=== PATIENT | female | born 1975 | race Caucasian/White ===

== ENCOUNTER 2020-05-30 15:41 | Outpatient (CLI) | payer OTHER, SELFPAY ==
--- NOTE | ~2020-05-30 | US_ITS ---
US breast LT complete 05/30/2020 16:36 Indication: Palpable left breast lumps Procedure: High-resolution Limited left breast ultrasound Comparison: No prior studies for comparison. Findings: Patient is status post left mastectomy in 2015. Palpable lumps superior to the left breast and left axilla are unremarkable without focal mass. Third palpable lump in the mid breast at the pre vious location of the nipple contains an oval hypoechoic mass measuring 1.5 x 1.4 x 0.7 cm with poste rior acoustic enhancement. No internal vascularity. Impression: 1: Oval hypoechoic 1.5 cm left breast mass mid breast level. There is parallel orientation, posterior acoustic enhancement without internal vascularity. This is likely benign postsurgical change. Short- term follow-up in 6 months recommended to assess stability. BI-RADS CATEGORY 3-PROBABLY BENIGN FINDING RECOMMENDATION: Six-month follow-up Limited left breast ultrasound recommended. Reviewed, dictated and finalized at location A. Impression: 1: Oval hypoechoic 1.5 cm left breast mass mid breast level. There is parallel orientation, posterior acoustic enhancement without internal vascularity. This is likely benign postsurgical change. Short-term follow-up in 6 months recommen ded to assess stability. BI-RADS CATEGORY 3-PROBABLY BENIGN FINDING RECOMMENDATION: Six-month follow-up Limited left breast ultrasound recommended.
== END 2020-05-30 15:42 | disposition home or self-care (01) ==
PROVIDERS: PCP Physician Assistant; Visit Provider Physician Assistant
DX: N63.20 Unspecified lump in the left breast, unspecified quadrant (principal); R92.8 Other abnormal and inconclusive findings on diagnostic imaging of breast
CPT/HCPCS: 76641

== ENCOUNTER → 2020-08-07 14:26 | Outpatient (CLI) | payer OTHER, SELFPAY ==
--- NOTE | ~2020-08-07 | XR_ITS ---
EXAMINATION: XR chest 2V DATE: 08/07/2020 14:46 INDICATION: Shortness of breath. TECHNIQUE: Frontal and lateral views of the chest were obtained. COMPARISON: Chest 2 views 10/05/2014, chest CT 03/27/2019 FINDINGS: The chest demonstrates clear lungs without pneumonia, pleural effusion, or pneumothorax. Th e heart size is normal. There is an old healed fracture of right seventh rib. IMPRESSION: 1. No acute cardiopulmonary disease. Reviewed, dictated and finalized at location A. E BRINE TESTER
== END ==
PROVIDERS: Visit Provider Nurse Practitioner
DX: R06.02 Shortness of breath (principal)
CPT/HCPCS: 71046

== ENCOUNTER 2020-08-14 10:36 | Emergency (ER) | payer OTHER, SELFPAY ==
[2020-08-14] VITALS (14 sets, daily range): BP systolic 147–192; BP diastolic 88–107; PULSE 66–85; RESP 13–20; O2SAT 97–100
--- NOTE | ~2020-08-14 | XR_ITS ---
EXAMINATION: XR chest 1V portable EXAM DATE: 08/14/2020 11:54 INDICATION: Shortness of breath. TECHNIQUE: Portable AP frontal chest x-ray was obtained. Comparison is made to prior examination from 08/07/2020. FINDINGS: The lungs are clear. There are no pleural effusions. The cardiomediastinal silhouette is within normal limits. There is no pneumothorax suspected. The bones and soft tissues are unremarkab le. Mild hyperinflation. IMPRESSION: No acute cardiopulmonary findings. Reviewed, dictated and finalized at location B. LIFT OPERATOR
--- NOTE | 2020-08-14 10:57 | ECG_ITS ---
Measurements Intervals [place] Rate: 77 P: 77 CO: 153 QRS: 69 QRSD: 85 T: 73 QT: 363 QTc: 412 Interpretive Statements SINUS RHYTHM POSSIBLE LEFT ATRIAL ENLARGEMENT BASELINE ARTIFACT- I, II, III, AVR, AVL, AVF, V1-V2 BORDERLINE ECG Electronically Signed On 08-14-2020 11:16:28 WET PROCESS OPERATOR by Jorge Tapia D.O.
[2020-08-14 11:07] LABS: Alveolar/Arterial O2 Gradient 25.9 mmHg; Base Excess ABG -1.4 mEq/l (+/-2.0); Device ROOM AIR; Fractional Inspired Oxygen 21 %; HCO3 ABG 23.1 mEq/l (22.0-26.0); Modified Allen's Test Pass; Oxygen Content ABG 18.3 %vol (16.0-22.0); Oxygen Saturation ABG 95.6 % (95.0-100.0); Oxyhemoglobin 90.3 % THb (90.0-100.0); PCO2 ABG 38.1 mmHg (35.0-45.0); PO2 ABG 78.2 mmHg (80.0-100.0); PO2 FiO2 Ratio Arterial Blood 3.72 %; Site Drawn RIGHT RADIAL; Total Hemoglobin 14.4 g/dL (12.0-18.0)
[2020-08-14 11:12] LABS: Basophils Percent Auto 0.3 % (0.2-1.2); Eosinophils Absolute Auto 0.1 K/mm3 (0-0.3); Eosinophils Percent Auto 1.2 % (0-4.4); Hematocrit 45.3 % (37.0-47.0); Hemoglobin 14.7 g/dL (12.0-15.0); Immature Granulocyte Absolute 0.02 K/mm3 (0.00-0.031); Immature Granulocyte Percent A 0.2 % (0-0.5); Lymphocytes Absolute Auto 2.06 K/mm3 (0.9-3.2); Lymphocytes Percent Auto 21.6 % (18.3-44.2); Mean Corpuscular HGB Conc 32.5 g/dl (32-36); Mean Corpuscular Hemoglobin 30.1 pg (26-34); Mean Corpuscular Volume 92.8 fl (80-100); Mean Platelet Volume 10.6 fl (7.4-10.4); Monocytes Absolute Auto 0.6 K/mm3 (0.1-0.6); Monocytes Percent Auto 6.3 % (2.6-8.5); Neutrophils Absolute Auto 6.7 K/mm3 (1.3-6.7); Neutrophils Percent Auto 70.4 % (45.5-73.1); Platelet Count Result 338 k/mm3 (150-375); Red Blood Count 4.88 M/mm3 (4.2-5.4); Red Cell Distribution Width 14.3 % (11.5-14.5); White Blood Count 9.5 K/mm3 (4.5-10.0)
[2020-08-14 11:23] LABS: Alanine Aminotransferase 19 U/L (4-35); Albumin Level 4.3 g/dL (3.5-5.1); Alkaline Phosphatase 101 U/L (38-126); Anion Gap 9 mmol/L (8-16); Aspartate Amino Transferase 33 U/L (14-36); Bilirubin,Total 0.4 mg/dL (0.2-1.3); Blood Urea Nitrogen 18 mg/dL (7-17); Calcium 9.2 mg/dL (8.4-10.2); Carbon Dioxide 31 mmol/L (22-30); Chloride 100 mmol/L (98-107); Estimated CRCL calculation 80 ml/min; Estimated Glomerular Filt Rate > 60; Glucose 103 mg/dL (65-105); Potassium 3.9 mmol/L (3.4-5.0); Sodium 140 mmol/L (137-145)
[2020-08-14 11:35] LABS: Troponin I < 0.012 ng/mL (0.000-0.034)
--- NOTE | 2020-08-14 11:35 | ED.SOB ---
HPI - SOB/Dyspnea General Chief Complaint: Shortness of Breath/Dyspnea Stated Complaint: sob, recent covid + Time Seen by Provider: 08/14/20 10:41 Source: patient Mode of arrival: ambulatory Limitations: no limitations History of Present Illness HPI Narrative: 44 years old white female presents with intermittent shortness of breath and chest pain 1 week after her diagnosis of COVID-19 infectION 4 weeks ago. Patient denying any fever or chills. History of COPD, currently actively smoking, drinking alcohol, denies drug. History of bilateral mastectomy 2016, denied any chemo or radiation therapy. Patient is telling me that she had a spot on her lung when she was diagnosed of breast cancer and she should follow with repeated CAT scan of the chest but she did not do it. Related Data Home Medications Medication Instructions Recorded Confirmed albuterol mcg INHALATION 08/14/20 budesonide-formoterol [Symbicort] INHALATION 08/14/20 dextroamphetamine-amphetamine PO 08/14/20 [Adderall XR] Allergies Allergy/AdvReac Type Severity Reaction Status Date / Time latex Allergy Unknown Swelling Verified 08/14/20 10:51 naproxen Allergy Unknown Unknown Verified 08/14/20 10:51 lisinopril AdvReac Unknown Cough Verified 08/14/20 10:51 Review of Systems Review of Systems: Narrative: CONSTITUTIONAL: Denies fever, chills, or sweats. EYES: Denies visual changes, redness, or discharge. ENT: Denies rhinorrhea, congestion, sore throat, or otalgia. CARDIOVASCULAR: Denies chest pain, palpitations, or edema. RESPIRATORY: Denies cough or dyspnea. GASTROINTESTINAL: Denies abdominal pain, nausea, vomiting, or diarrhea. GENITOURINARY: Denies dysuria or hematuria. SKIN: Denies rash or itching. MUSCULOSKELETAL: Denies back pain, joint pain, or myalgia. NEUROLOGIC: Denies headache, numbness, or weakness. PSYCHIATRIC: Denies anxiety or depression. [facility] Family History Family History Father Hypertension Mother Asthma Family history of elevated blood lipids Sibling Family history of elevated blood lipids Carcinoma of colon Social History Social History Smoking status: Never smoker Alcohol intake: current Gender identity (if verbalized by the patient): Female Exam Narrative: Exam Narrative: General appearance: Well-developed, well-nourished Skin: Normal color Head: Normocephalic, nontraumatic Eyes: Clear conjunctiva ENT: Oropharynx normal, ears normal, nose normal Neck: Supple, nontender Chest and respiratory: Airway patent, no respiratory distress, no accessory muscle use, few scattered rhonchi, bilateral mastectomy Heart: Regular rate/rhythm Abdomen: Soft, nontender, no organomegaly, quiet bowel sounds Vascular: Normal peripheral pulses, normal capillary refill. Musculoskeletal: Normal range of motion, nontender back Neurologic: Alert and oriented ?3, GLASS VIAL FILLER is normal as tested, no gross motor deficit Course Course Emergency Course: Stable Vital Signs Vital signs: Vital Signs Pulse Rate 76 08/14/20 10:40 Respiratory Rate 16 08/14/20 10:40 Blood Pressure 192/107 H 08/14/20 10:40 Pulse Oximetry 100 08/14/20 10:40 Pulse Rate 76 08/14/20 10:46 Respiratory Rate 16 08/14/20 10:40 Blood Pressure 192/107 H 08/14/20 10:40 Pulse Oximetry 100 08/14/20 10:46 MDM - SOB/Dyspnea MDM Narrative Medical decision making narrative: Shortness of breath and chest pain status post Covid infection. Labs, chest x-ray, D-dimer, ABG on room air ordered. Further plan to follow Differential Diagnosis Differential diagnosis: Likely acute exace
== END 2020-08-14 13:02 | disposition home or self-care (01) ==
PROVIDERS: Emergency Provider Emergency Medicine; PCP Nurse Practitioner Adult Health
DX: R06.02 Shortness of breath (principal); J44.9 Chronic obstructive pulmonary disease, unspecified; Z86.19 Personal history of other infectious and parasitic diseases; F17.200 Nicotine dependence, unspecified, uncomplicated; Z90.13 Acquired absence of bilateral breasts and nipples; Z85.3 Personal history of malignant neoplasm of breast; R94.31 Abnormal electrocardiogram [ECG] [EKG]
CPT/HCPCS: 36415; 36600; 71045; 80053; 82805; 84484; 85025; 85380; 93005; 99284

== ENCOUNTER 2021-09-03 13:10 | Emergency (ER) | payer OTHER, SELFPAY ==
[2021-09-03 13:24] VITALS: BP 130/74; PULSE 86; RESP 16; TEMP 36.6; O2SAT 100
--- NOTE | 2021-09-03 13:28 | ECG_ITS ---
Measurements Intervals [place] Rate: 80 P: 73 WI: 150 QRS: 64 QRSD: 89 T: 65 QT: 358 QTc: 414 Interpretive Statements SINUS RHYTHM MINIMAL Q WAVES- ANTEROLAT/INF LEADS BORDERLINE ECG Electronically Signed On 09-03-2021 16:15:44 FUR POLISHER by Jorge Tapia D.O.
[2021-09-03 16:37] VITALS: BP 133/83; PULSE 69; RESP 14; RESP 16; O2SAT 100
--- NOTE | 2021-09-03 17:00 | PC.NURSE ---
Pt. reports bilat. lower extremity tingling. pt. lower legs 2+ pulses and normal color in legs.
[2021-09-03 17:37] LABS: Basophils Percent Auto 0.5 % (0.2-1.2); Eosinophils Absolute Auto 0.1 K/mm3 (0-0.3); Eosinophils Percent Auto 1.3 % (0-4.4); Hemoglobin 14.8 g/dL (12.0-15.0); Immature Granulocyte Absolute 0.02 K/mm3 (0.00-0.031); Immature Granulocyte Percent A 0.2 % (0-0.5); Lymphocytes Absolute Auto 2.37 K/mm3 (0.9-3.2); Lymphocytes Percent Auto 28.5 % (18.3-44.2); Mean Corpuscular HGB Conc 33.6 g/dl (32-36); Mean Corpuscular Hemoglobin 29.9 pg (26-34); Mean Corpuscular Volume 88.9 fl (80-100); Mean Platelet Volume 9.5 fl (7.4-10.4); Monocytes Absolute Auto 0.6 K/mm3 (0.1-0.6); Monocytes Percent Auto 7.5 % (2.6-8.5); Neutrophils Absolute Auto 5.2 K/mm3 (1.3-6.7); Platelet Count Result 331 k/mm3 (150-375); Red Blood Count 4.95 M/mm3 (4.2-5.4); Red Cell Distribution Width 13.2 % (11.5-14.5); White Blood Count 8.3 K/mm3 (4.5-10.0)
[2021-09-03 17:51] LABS: Anion Gap 6 mmol/L (8-16); Blood Urea Nitrogen 26 mg/dL (7-17); Calcium 9.7 mg/dL (8.4-10.2); Carbon Dioxide 30 mmol/L (22-30); Chloride 98 mmol/L (98-107); Estimated CRCL calculation 72 ml/min; Estimated Glomerular Filt Rate > 60; Glucose 103 mg/dL (65-110); Sodium 134 mmol/L (137-145)
--- NOTE | 2021-09-03 17:54 | ED.GENADULT ---
HPI - General Adult General Chief complaint: Recheck/Abnormal Lab/Rx Stated complaint: HTN Time Seen by Provider: 09/03/21 16:34 Source: patient Mode of arrival: ambulatory Limitations: no limitations History of Present Illness HPI narrative: 45-year-old with a history of hypertension here with the complaints of elevated blood pressure for the last few days. Patient states she has seen her primary doctor was started on losartan with hydrochlorothiazide 2 days ago. Had outpatient lab work done and was told to come to the ER has her potassium was elevated. Patient presently has no complaints. Onset (ago): day(s) (2) Severity: mild Exacerbating factors: none Associated symptoms: denies other symptoms Treatments prior to arrival: none Related Data Home Medications Medication Instructions Recorded Confirmed albuterol mcg INHALATION 08/14/20 budesonide-formoterol [Symbicort] INHALATION 08/14/20 dextroamphetamine-amphetamine PO 08/14/20 [Adderall XR] Allergies Allergy/AdvReac Type Severity Reaction Status Date / Time latex Allergy Unknown Swelling Verified 09/01/20 12:05 naproxen Allergy Unknown Unknown Verified 09/01/20 12:05 lisinopril AdvReac Unknown Cough Verified 09/01/20 12:05 Review of Systems Review of Systems: All systems reviewed & are unremarkable except as noted in HPI and below Constitutional: Constitutional: Reports no additional constitutional complaints Eyes: Eyes: Reports no additional eye complaints ENT: Reports system reviewed and no additional complaints, except as documented Cardiovascular: Cardiovascular: Reports no additional cardiovascular complaints Respiratory: Respiratory: Reports no additional respiratory complaints Gastrointestinal: Gastrointestinal: Reports no additional gastrointestinal complaints Musculoskeletal: Musculoskeletal: Reports no additional musculoskeletal complaints Neurologic: Reports system reviewed and no additional complaints, except as documented Psychiatric: Psychiatric: Reports no additional psychiatric complaints PMFSH Family History Family History Father Hypertension Mother Asthma Family history of elevated blood lipids Sibling Family history of elevated blood lipids Carcinoma of colon Social History Social History Smoking status: Never smoker Alcohol intake: current Gender identity (if verbalized by the patient): Female Exam Narrative: GENERAL: Well-appearing, well-nourished, and in no acute distress. HEAD: Normocephalic, atraumatic. EYES: PERRLA and EOMI. NECK: Supple. CHEST: Clear to auscultation. No respiratory distress. HEART: Regular rate and rhythm. No murmur heard. Normal peripheral pulses. ABDOMEN: Soft, nontender, nondistended, normal active bowel sounds. EXTREMITIES: Normal range of motion. No edema. SKIN: Warm, dry, no rash. NEURO: No focal deficits. Alert and oriented x3. PSYCH: Normal mood and affect. Course Course Emergency Course: Repeat labs are perfectly normal her potassium is 4. Informed about her lab work. Advised to continue home medication, follow-up with her primary doctor. Vital Signs Vital signs: Vital Signs Temperature 36.6 C 09/03/21 13:24 Pulse Rate 86 09/03/21 13:24 Respiratory Rate 16 09/03/21 13:24 Blood Pressure 130/74 09/03/21 13:24 Pulse Oximetry 100 09/03/21 13:24 Temperature 36.6 C 09/03/21 13:24 Pulse Rate 69 09/03/21 16:37 Respiratory Rate 14 09/03/21 16:37 Blood Pressure 133/83 09/03/21 16:37 Pulse Oximetry 100 09/03/21 16:37 Medical Decision Making Vital Signs Vital Signs: Vital Signs Temperature 36.6 C 09/03/21 13:24 Pulse Rate 86 09/03/21 13:24 Respiratory Rate 16 09/03/21 13:24 Blood Pressure 130/74 09/03/21 13:24 Pulse Oximetry 100 09/03/21 13:24 Temperature 36.6 C 09/03/21 13:24 Pulse Rate 69 0
[2021-09-03 18:00] VITALS: BP 113/83; PULSE 88; RESP 14; O2SAT 99
== END 2021-09-03 18:00 | disposition home or self-care (01) ==
PROVIDERS: Emergency Provider Family Medicine; PCP Nurse Practitioner Adult Health
DX: I10 Essential (primary) hypertension (principal); R94.31 Abnormal electrocardiogram [ECG] [EKG]
CPT/HCPCS: 36415; 80048; 85025; 93005; 99283

== ENCOUNTER 2021-09-11 10:29 | Outpatient (CLI) | payer OTHER, SELFPAY ==
--- NOTE | ~2021-09-11 | XR_ITS ---
XR hip RT min 2V 09/11/2021 10:50 Indication: Chronic right hip pain Procedure: 2 views right hip Comparison: 02/11/2017 Findings: No fracture, subluxation or dislocation. No significant soft tissue abnormality. No signifi cant soft tissue abnormality. No foreign bodies. Impression: 1: No significant bone or joint abnormality. Reviewed, dictated and finalized at location B. METRIC TECHNOLOGIST Impression: 1: No significant bone or joint abnormality.
--- NOTE | ~2021-09-11 | CT_ITS ---
EXAMINATION: CT diagnostic chest wo con DATE: 09/11/2021 10:55 INDICATION: Lung nodule follow-up TECHNIQUE: Computed tomography (CT) of the chest was performed without intravenous contrast. Automate d exposure control and iterative reconstruction technique were employed. Exam dose: 159.70 mGy-cm to ned exam DLP. COMPARISON: 08/14/2020 portable AP chest 03/27/2019 CT chest FINDINGS: Stable 4 mm calcified peripheral posterolateral right lower lobe nodule consistent with old granuloma tous disease, stable since 03/27/2019 3.3 mm right lower lobe probable partially calcified lingular granuloma (series 4 image 77). CT follo w-up in 1 year is recommended. There is minimal discoid atelectasis in the posterior lower lobes. Minimal bilateral apical capping. Mild emphysematous changes. No pulmonary consolidation. No hilar or mediastinal mass lesion or lymphadenopathy. Normal morphology of the adrenal glands. Normal heart size. No thoracic aortic aneurysm. No pericardial or pleural effusion. Included skeletal structures are unremarkable. IMPRESSION: Probable small calcified right lower lobe pulmonary granulomas; CT thorax follow-up in 1 year is recommended. Reviewed, dictated and finalized at Location A. Reviewed, dictated and finalized at location A. CCO WETTER
== END 2021-09-11 10:30 | disposition home or self-care (01) ==
PROVIDERS: PCP Nurse Practitioner Adult Health; Visit Provider Nurse Practitioner Adult Health
DX: R91.1 Solitary pulmonary nodule (principal)
CPT/HCPCS: 71250; 73502

== ENCOUNTER 2021-10-08 00:44 | Day surgery (SDC) | payer OTHER, SELFPAY ==
[2021-10-05 12:39] VITALS: BMI 24.0
--- NOTE | 2021-10-08 10:24 | PM.HPGS ---
History of Present Illness History of Present Illness Consent: Risks, benefits, and alternatives have been discussed and questions answered. Patient agrees to proceed with procedure. Chief complaint: Neoplasm screening Narrative: Gayathri Billingsley is a 46 year old female here for colonoscopy, last one 5 years ago. Brother had colon cancer. Review of Systems Constitutional: Constitutional: Denies headache(s) and Denies weakness Eyes: Eyes: Denies blurry vision ENT: Reports Normal hearing present, Denies headache(s) and Denies neck pain Cardiovascular: Cardiovascular: Denies chest pain and Denies dyspnea Respiratory: Respiratory: Denies dyspnea Gastrointestinal: Gastrointestinal: Reports no additional gastrointestinal complaints Genitourinary: Genitourinary: Denies dysuria Musculoskeletal: Musculoskeletal: Denies neck pain Integumentary/Breasts: Skin/Breast: Denies dry skin Neurologic: Reports Normal hearing present, Denies headache(s) and Denies weakness Psychiatric: Psychiatric: Denies anxiety Endocrine: Endocrine: Denies change in body appearance Hematologic/Lymphatic: Hematologic/Lymphatic: Denies easy bleeding Allergic/Immunologic: Allergic/Immunologic: Denies urticaria PMFSH Past Medical History Medical History (Updated 10/08/21 @ 10:25 by Jimbo Larkin MD) Family history of colon cancer Family History Family History Father Hypertension Mother Asthma Family history of elevated blood lipids Sibling Family history of elevated blood lipids Carcinoma of colon Social History Social History Smoking packs per day: 1 Smoking cigarettes per day: 20.0 Years smoked: 35 Smoking pack-years: 35.00 Smoking status: Current every day smoker Tobacco type: cigarettes Alcohol intake: current Drinks per week: 7 Substance use: never Substance use type: does not use Living arrangements: alone Gender identity (if verbalized by the patient): Female Spiritual care concerns: No Meds Home Medications and Allergies Home Medications Medication Instructions Recorded Confirmed Type albuterol sulfate 2.5 mg INHALATION 10/05/21 History tiotropium bromide [Spiriva 1 inh INHALATION DAILY 10/05/21 10/05/21 History Respimat] Allergies Allergy/AdvReac Type Severity Reaction Status Date / Time latex Allergy Intermediate Swelling Verified 10/05/21 12:41 lisinopril Allergy Intermediate Cough Verified 10/05/21 12:41 naproxen AdvReac Unknown Unknown Verified 10/05/21 12:41 Exam Const: General: comfortable and no acute distress HENMT: General nose exam: Normal nares present Eyes: General: appearance normal, both eyes and all related structures Neck: Neck: no JVD Resp: Auscultation: clear to auscultation bilaterally Cardio: Rate: regular rate Rhythm: regular rhythm GI: Inspection: non-distended GI Palp: Yes Soft to palpation Skin: General skin exam: normal color Neuro: General: gait normal Speech: normal speech Extrem: General: normal to inspection Psych: Mental Status: mental status grossly normal Assessment and Plan Assessment and plan (1) Family history of colon cancer: Code(s): Z80.0 - Family history of malignant neoplasm of digestive organs Status: Acute Assessment and Plan: colonoscopy
[2021-10-08 10:32] VITALS: BP 137/97; PULSE 87; RESP 20; TEMP 36.3; O2SAT 100
[2021-10-08] MEDS: LACTATED RINGERS 1,000 ML 150 ML IV CONT (10:36)
--- NOTE | 2021-10-08 10:49 | WPDANESEPPF ---
Anes - Initial Pre Proc Eval Procedure: Operation Date: 10/08/21 11:30 Proposed Procedures p Screening Colonoscopy - Jimbo Larkin MD Date/Time: 10/08/21 10:49 Surgeon: Jimbo Larkin MD Pre Op Diagnosis: Neoplasm screening Patient Data Age: 46 Gender: F Height: 1.75 m Weight: 74.2 kg Last Vital Signs Temp 97.3 F L 10/08/21 10:32 Pulse 87 10/08/21 10:32 Resp 20 10/08/21 10:32 BP 137/97 H 10/08/21 10:32 Pulse Ox 100 10/08/21 10:32 Allergies Allergy/AdvReac Type Severity Reaction Status Date / Time latex Allergy Intermediate Swelling Verified 10/08/21 10:31 lisinopril Allergy Intermediate Cough Verified 10/08/21 10:31 naproxen AdvReac Unknown Unknown Verified 10/08/21 10:31 Home Medications Medication Instructions Recorded Confirmed Type albuterol sulfate 2.5 mg INHALATION 10/05/21 History tiotropium bromide [Spiriva 1 inh INHALATION DAILY 10/05/21 10/05/21 History Respimat] Patient hx anesthesia problems: none Family hx anesthesia problems: none Results Review: All pre-operative results and documents have been reviewed as part of the pre-operative evaluation. [facility] Past Medical History Medical History (Updated 10/08/21 @ 10:25 by Jimbo Larkin MD) Family history of colon cancer Family History Family History Father Hypertension Mother Asthma Family history of elevated blood lipids Sibling Family history of elevated blood lipids Carcinoma of colon Social History Social History Smoking packs per day: 1 Smoking cigarettes per day: 20.0 Years smoked: 35 Smoking pack-years: 35.00 Smoking status: Current every day smoker Tobacco type: cigarettes Alcohol intake: current Drinks per week: 7 Substance use: never Substance use type: does not use Living arrangements: alone Gender identity (if verbalized by the patient): Female Spiritual care concerns: No Anes - Eval Final PreProcedure Day of Procedure 10/08/21 10:49 Patient weight: normal Heart: regular rate and rhythm Lungs: clear to auscultation Airway: Mallampati scale class II Neurological: alert and oriented Last oral intake: >/= 8 hours ASA classification: III Emergent: no Anesthetic plan: proceed Anesthesia type and monitoring: general GIVS and standard monitoring Results Review: All pre-operative results and documents have been reviewed as part of the pre-operative evaluation. Informed Consent: The patient's anesthetic plan and its attendant risks and benefits were discussed with the patient/family/POA. Questions were solicited and answers provided to the satisfaction of the patient/family/POA.
[2021-10-08 10:54] VITALS: BP 99/56; PULSE 78; RESP 17; O2SAT 95
[2021-10-08 11:04] VITALS: BP 104/36; PULSE 101; RESP 22; O2SAT 100
[2021-10-08 11:14] VITALS: BP 122/68; PULSE 79; RESP 17; O2SAT 100
--- NOTE | 2021-10-08 11:24 | SUR.PHASEII ---
1105- Pt complaining of right side abdominal pain. Requesting pain meds. 1110- Notified Dr. Velarde. Order received for Toradol 30mg IVP. 1115- Pt now states she thinks the pain is hunger pain and feels better. Pt declined taking the Toradol.
== END 2021-10-08 11:28 | disposition home or self-care (01) ==
PROVIDERS: PCP Nurse Practitioner Adult Health; Visit Provider Internal Medicine Gastroenterology
PROC: 0DJD8ZZ Inspection of Lower Intestinal Tract, Via Natural or Artificial Opening Endoscopic (ICD-10-PCS; CPT 45378; principal; 2021-10-08 11:30)
DX: Z12.11 Encounter for screening for malignant neoplasm of colon (principal); K64.8 Other hemorrhoids; Z80.0 Family history of malignant neoplasm of digestive organs; F17.210 Nicotine dependence, cigarettes, uncomplicated; Z79.51 Long term (current) use of inhaled steroids
CPT/HCPCS: 45378; J2704; J7120

== ENCOUNTER 2021-12-05 12:49 | Outpatient (CLI) | payer OTHER, SELFPAY ==
--- NOTE | ~2021-12-05 | US_ITS ---
US axilla LT DATE: 12/05/2021 14:15 INDICATION: Left axillary lump. History of left breast cancer, bilateral mastectomy TECHNIQUE: Ultrasound and color flow imaging of the left axillary soft tissues COMPARISON: None FINDINGS: 4 x 13 mm and 6 x 8.4 mm unremarkable lymph nodes are noted. No suspicious mass or shadowing is detected. IMPRESSION: No suspicious finding Reviewed, dictated and finalized at Location A. Reviewed, dictated and finalized at location A. IMPRESSION: No suspicious finding
== END 2021-12-05 12:50 ==
LOC: MICIMG 12:51
PROVIDERS: PCP Nurse Practitioner Adult Health; Visit Provider Nurse Practitioner Adult Health
DX: R22.2 Localized swelling, mass and lump, trunk (principal)
CPT/HCPCS: 76882

== ENCOUNTER 2022-06-22 16:26 | Emergency (ER) | payer OTHER, SELFPAY ==
[2022-06-22] VITALS (18 sets, daily range): BP systolic 144–159; BP diastolic 77–100; PULSE 74–88; RESP 13–22; TEMP 36.7; O2SAT 93–100
--- NOTE | ~2022-06-22 | XR_ITS ---
EXAMINATION: XR chest 2V Exam Date/Time: 06/22/2022 16:50 CDT HISTORY: LT SIDED CP/LT ARM TINGLING X 1 WK. HX BREAST CA,JUANA MASTECT Comparison: 08/14/2020. RESULT: Lines, tubes, and devices: None. Lungs and pleura: Clear. Cardiomediastinal silhouette: Stable. Other: No acute osseous or upper abdominal finding. IMPRESSION: No acute cardiopulmonary process. Reviewed, dictated and finalized at location K.
--- NOTE | 2022-06-22 16:27 | ECG_ITS ---
Measurements Intervals [place] Rate: 81 P: 74 [place]: 157 QRS: 72 QRSD: 93 T: 69 QT: 369 QTc: 428 Interpretive Statements SINUS RHYTHM BASELINE ARTIFACT- I, II, III, AVR, AVL, AVF, V4-V6 NORMAL ECG COMPARED TO ECG 09/03/2021 13:18:44 NO SIGNIFICANT CHANGES Electronically Signed On 06-22-2022 20:10:09 CDT by Jorge Tapia D.O.
[2022-06-22 16:44] LABS: Basophils Percent Auto 0.2 % (0.2-1.2); Eosinophils Absolute Auto 0.1 K/mm3 (0-0.3); Eosinophils Percent Auto 1.4 % (0-4.4); Hematocrit 45.4 % (37.0-47.0); Hemoglobin 14.7 g/dL (12.0-15.0); Immature Granulocyte Absolute 0.03 K/mm3 (0.00-0.031); Immature Granulocyte Percent A 0.3 % (0-0.5); Lymphocytes Absolute Auto 1.12 K/mm3 (0.9-3.2); Lymphocytes Percent Auto 11.1 % (18.3-44.2); Mean Corpuscular HGB Conc 32.4 g/dl (32-36); Mean Corpuscular Hemoglobin 30.1 pg (26-34); Monocytes Absolute Auto 0.6 K/mm3 (0.1-0.6); Monocytes Percent Auto 5.6 % (2.6-8.5); Neutrophils Absolute Auto 8.2 K/mm3 (1.3-6.7); Neutrophils Percent Auto 81.4 % (45.5-73.1); Platelet Count Result 294 k/mm3 (150-375); Red Blood Count 4.88 M/mm3 (4.2-5.4); Red Cell Distribution Width 14.7 % (11.5-14.5); White Blood Count 10.1 K/mm3 (4.5-10.0)
[2022-06-22 16:55] LABS: Alanine Aminotransferase 24 U/L (6-35); Albumin Level 4.4 g/dL (3.5-5.1); Alkaline Phosphatase 100 U/L (38-126); Anion Gap 10 mmol/L (8-16); Aspartate Amino Transferase 31 U/L (14-36); Bilirubin,Total 0.5 mg/dL (0.2-1.3); Blood Urea Nitrogen 14 mg/dL (7-17); Calcium 8.6 mg/dL (8.4-10.2); Carbon Dioxide 29 mmol/L (22-30); Chloride 99 mmol/L (98-107); Estimated CRCL calculation 103 ml/min; Estimated Glomerular Filt Rate > 60; Glucose 98 mg/dL (65-110); Lipase 36 U/L (23-300); Potassium 3.8 mmol/L (3.4-5.0); Prothrombin Time 13.1 Seconds (11.1-14.7); Sodium 138 mmol/L (137-145)
[2022-06-22 16:56] LABS: Partial Thromboplastin Time 33.7 SECONDS (22.3-36.8)
[2022-06-22 17:06] LABS: Troponin I < 0.012 ng/mL (0.000-0.034)
--- NOTE | 2022-06-22 18:08 | ED.CHESTPAIN ---
HPI - Chest Pain General Chief Complaint: Chest Pain Stated Complaint: CHEST PAIN Time Seen by Provider: 06/22/22 18:00 History of Present Illness HPI narrative: Patient is a 46-year-old female with a history of hypertension, COPD presenting with chest pain. Patient states that for the last week she has had intermittent left-sided severe chest pain that radiates into her left arm. States she has chronic shortness of breath related to COPD. States that she has also been lightheaded whenever she has these episodes of chest pain. Patient states that she was nauseated earlier but no vomiting. Currently, she states that the pain has resolved. She denies headaches, fever, cough, abdominal pain, diarrhea, dysuria, leg swelling. Related Data Home Medications Medication Instructions Recorded Confirmed albuterol sulfate 2.5 mg/3 mL 2.5 mg inhalation 10/05/21 (0.083 %) solution for nebulization tiotropium bromide 2.5 1 inh inhalation DAILY 10/05/21 10/05/21 mcg/actuation mist for inhalation (Spiriva Respimat) Allergies Allergy/AdvReac Type Severity Reaction Status Date / Time latex Allergy Intermediate Swelling Verified 06/22/22 18:13 lisinopril Allergy Intermediate Cough Verified 06/22/22 18:13 naproxen AdvReac Unknown Unknown Verified 06/22/22 18:13 Review of Systems Review of Systems: All systems reviewed & are unremarkable except as noted in HPI and below PMFSH Past Medical History Medical History Family history of colon cancer Family History Family History Father Hypertension Mother Asthma Family history of elevated blood lipids Sibling Family history of elevated blood lipids Carcinoma of colon Social History Social History Smoking packs per day: 1 Smoking cigarettes per day: 20.0 Years smoked: 35 Smoking pack-years: 35.00 Smoking status: Current every day smoker Tobacco type: cigarettes Alcohol intake: current Drinks per week: 7 Substance use: never Substance use type: does not use Gender identity (if verbalized by the patient): Female Spiritual care concerns: No Exam Narrative: GENERAL: Well-appearing, well-nourished, and in no acute distress. HEAD: Normocephalic, atraumatic. EYES: PERRLA and EOMI. ENT: Nares clear, no rhinorrhea or epistaxis. Mucous membranes moist. NECK: Supple. CHEST: Diminished breath sounds bilaterally but no wheezing or crackles. No respiratory distress. HEART: Regular rate and rhythm. No murmur heard. Normal peripheral pulses. ABDOMEN: Soft, nontender, nondistended, normal active bowel sounds. EXTREMITIES: Normal range of motion. No edema. SKIN: Warm, dry, no rash. NEURO: No focal deficits. Alert and oriented x3. PSYCH: Normal mood and affect. Course Vital Signs Vital signs: Vital Signs Temperature 98.0 F 06/22/22 16:41 Pulse Rate 86 06/22/22 16:41 Respiratory Rate 18 06/22/22 16:41 Blood Pressure 144/77 H 06/22/22 16:41 Pulse Oximetry 99 06/22/22 16:41 Oxygen Delivery Room Air 06/22/22 16:41 Temperature 98.0 F 06/22/22 21:59 Pulse Rate 75 06/22/22 21:59 Respiratory Rate 18 06/22/22 21:59 Blood Pressure 150/86 H 06/22/22 21:59 Pulse Oximetry 97 06/22/22 21:59 Oxygen Delivery Room Air 06/22/22 18:09 MDM - Chest Pain MDM Narrative Medical decision making narrative: Patient is a 46-year-old female presenting with a week of chest pain. Patient is hypertensive, otherwise vitals are within normal limits. Patient is nontoxic and in no acute distress. Exam is remarkable for the above. EKG per my interpretation shows normal sinus rhythm, normal axis and intervals, no ST elevations or depressions. It is unchanged from prior EKG. Blood work with mild leukocytosis. No electrolyte abnormalities. Troponins are negative
--- NOTE | 2022-06-22 19:15 | PC.NURSE ---
Report received from YADIRA Teresa. Assumed care of patient at this time.
[2022-06-22 19:56] LABS: Troponin I < 0.012 ng/mL (0.000-0.034)
[2022-06-22] MEDS: CYCLOBENZAPRINE HCL 10 MG TABLET PO (21:17)
[2022-06-22] MEDS: KETOROLAC 15 MG/ML VIAL (*BKC) IV PUSH (21:17)
== END 2022-06-22 22:01 | disposition home or self-care (01) ==
PROVIDERS: Emergency Medicine; Emergency Provider Emergency Medicine; PCP Nurse Practitioner Adult Health
DX: R07.89 Other chest pain (principal); M62.838 Other muscle spasm; J44.9 Chronic obstructive pulmonary disease, unspecified; I10 Essential (primary) hypertension; F17.210 Nicotine dependence, cigarettes, uncomplicated
CPT/HCPCS: 36415; 71046; 80053; 83690; 84484; 85025; 85610; 85730; 87804; 93005; 96374; 99284; A9270; J1885

== ENCOUNTER 2022-07-17 17:51 | Emergency (ER) | payer OTHER, SELFPAY ==
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
[2022-07-17 18:39] VITALS: BP 159/72; PULSE 76; RESP 16; TEMP 36.7; O2SAT 97
[2022-07-17] MEDS: ACETAMINOPHEN 325 MG TABLET 650 MG PO (20:14)
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
[2022-07-17 21:26] VITALS: BP 159/97; PULSE 75; RESP 16; O2SAT 99
== END 2022-07-17 21:27 | disposition home or self-care (01) ==
PROVIDERS: Emergency Provider Physician Assistant
DX: S00.12XA Contusion of left eyelid and periocular area, initial encounter (principal); F17.210 Nicotine dependence, cigarettes, uncomplicated; Y04.0XXA Assault by unarmed brawl or fight, initial encounter
CPT/HCPCS: 70450; 70486; 72125; 99284; A9270

== ENCOUNTER 2022-09-25 22:23 | Emergency (ER) | payer OTHER, SELFPAY ==
--- NOTE | ~2022-09-25 | XR_ITS ---
EXAMINATION: XR hand LT min 3V DATE: 09/25/2022 22:39 INDICATION: Post rheumatic discoloration to the left third-fifth digits TECHNIQUE: Posteroanterior, oblique and lateral views of the left hand were obtained. COMPARISON: None. FINDINGS: Bone alignment is normal. No fracture. Polyarticular osteoarthritis, moderate to severe at the first carpometacarpal joint with small heterotopic ossicle versus loose body at the dorsal/radial side of t he joint space. Additional mild to moderate osteoarthritis at the third metacarpophalangeal joint and minimal to mild osteoarthritis at the interphalangeal joints. There is mild periarticular soft tissu e swelling at the third and fourth and to lesser degree second proximal interphalangeal joints as wel l as at the second and third metacarpophalangeal joints. IMPRESSION: 1. No acute osseous abnormality. 2. Polyarticular osteoarthritis, moderate to severe at the left first carpometacarpal joint. Reviewed, dictated and finalized at location A. RBOARD BOX MAKER IMPRESSION: 1. No acute osseous abnormality. 2. Polyarticular osteoarthritis, moderate to severe at the left first carpometa carpal joint.
--- NOTE | 2022-09-25 22:29 | ED.UPPEXIN ---
HPI - Extremity Injury (Upper) General Chief Complaint: Extremity Injury, Upper Stated Complaint: L hand injury Source: patient Mode of arrival: ambulatory Limitations: no limitations History of Present Illness HPI narrative: 46-year-old female, smoker with a history of COPD, MARIEL, hypertension, arthritis, breast cancer status post bilateral mastectomy, depression presents to the ER with -- left hand redness/ erythema after she hit her hand on a stationary object while mopping her floor. The patient denied any pain. Decreased range of motion at the PIP and the D IP of the fingers. No wrist pain. No other injuries noted . MD complaint: injury to: left and hand Onset (ago): hour(s) ( 1 hour ago) Other Extremity Injury: Left: hand Other injuries: none Place: home Relieving factors: none Exacerbating factors: none Context: direct blow Associated symptoms: denies other symptoms Related Data Home Medications Medication Instructions Recorded Confirmed albuterol sulfate 2.5 mg/3 mL 2.5 mg inhalation 10/05/21 08/26/22 (0.083 %) solution for nebulization tiotropium bromide 2.5 1 inh inhalation DAILY 10/05/21 08/26/22 mcg/actuation mist for inhalation (Spiriva Respimat) ibuprofen 800 mg tablet 800 mg PO Q6H 08/26/22 08/26/22 Allergies Allergy/AdvReac Type Severity Reaction Status Date / Time latex Allergy Intermediate Swelling Verified 08/26/22 13:54 lisinopril Allergy Intermediate Cough Verified 08/26/22 13:54 naproxen AdvReac Unknown Unknown Verified 08/26/22 13:54 Review of Systems Review of Systems: All systems reviewed & are unremarkable except as noted in HPI and below Constitutional: Constitutional: Reports as per HPI and Reports no additional constitutional complaints Eyes: Eyes: Reports as per HPI and Reports no additional eye complaints ENT: Reports system reviewed and no additional complaints, except as documented and Reports as per HPI Cardiovascular: Cardiovascular: Reports as per HPI and Reports no additional cardiovascular complaints Respiratory: Respiratory: Reports as per HPI, Reports no additional respiratory complaints, Reports chest congestion and Reports cough Gastrointestinal: Gastrointestinal: Reports as per HPI and Reports no additional gastrointestinal complaints Genitourinary: Genitourinary: Reports no additional female genitourinary complaints and Reports as per HPI Musculoskeletal: Musculoskeletal: Reports no additional musculoskeletal complaints and Reports as per HPI Comments: erythema on the back of her left hand and fingers. Denies any pain Integumentary/Breasts: Skin/Breast: Reports system reviewed and no additional complaints, except as docu Neurologic: Reports system reviewed and no additional complaints, except as documented and Reports as per HPI Psychiatric: Psychiatric: Reports no additional psychiatric complaints and Reports as per HPI Endocrine: Endocrine: Reports no additional endocrine complaints and Reports as per HPI Hematologic/Lymphatic: Hematologic/Lymphatic: Reports no additional hematologic/lymphatic complaints and Reports as per HPI Allergic/Immunologic: Allergic/Immunologic: Reports no additional allergic/immunologic complaints and Reports as per HPI PMFSH Past Medical History Medical History Alcohol abuse, in remission Carpal tunnel syndrome on left Family history of colon cancer History of abnormal uterine bleeding History of breast cancer in adulthood History of broken leg Hx of dysfunctional uterine bleeding Hyperglycemia Sludge in gallbladder Surgical History Surgical History History of breast surgery History of endometrial ablation Hx of appendectomy Hx of bilateral mastectomy Hx of eye surgery Hx of foot surgery Family History Family History Father Hypertension Moth
[2022-09-25 22:31] VITALS: BP 159/96; PULSE 89; RESP 20; TEMP 36.6; O2SAT 100
[2022-09-25 23:17] VITALS: BP 111/66; PULSE 88; RESP 20; TEMP 36.8; O2SAT 95
== END 2022-09-25 23:18 | disposition home or self-care (01) ==
PROVIDERS: Emergency Provider Internal Medicine Critical Care Medicine; PCP Family Medicine
DX: S60.222A Contusion of left hand, initial encounter (principal); I10 Essential (primary) hypertension; J44.9 Chronic obstructive pulmonary disease, unspecified; F17.210 Nicotine dependence, cigarettes, uncomplicated; Z85.3 Personal history of malignant neoplasm of breast; W22.09XA Striking against other stationary object, initial encounter
CPT/HCPCS: 73130; 99283

== ENCOUNTER 2022-09-26 15:12 | Outpatient (CLI) | payer OTHER, SELFPAY ==
--- NOTE | ~2022-09-26 | US_ITS ---
US breast BI complete DATE: 09/26/2022 16:10 INDICATION: Personal history of malignant breast tumor. Status post bilateral mastectomy TECHNIQUE: Real-time and color flow imaging of the bilateral mastectomy areas and axillary regions COMPARISON: 09/26/2022 CT chest 05/30/2020 left breast ultrasound 04/01/2016 Diagnostic right mammogram and complete right breast ultrasound examination 08/21/2015 bilateral diagnostic mammogram FINDINGS: Status post bilateral mastectomy. No suspicious mass or shadowing is detected in the mastec osvaldo beds or axillary areas bilaterally. IMPRESSION: Status post bilateral mastectomy; no mastectomy bed or axillary mass is noted on either s liz BI-RADS Category 2: Benign . Reviewed, dictated and finalized at Location A. Reviewed, dictated and finalized at location A. LE ARCHITECT IMPRESSION: Status post bilateral mastectomy; no mastectomy bed or axillary mas s is noted on either side BI-RADS Category 2: Benign .
--- NOTE | ~2022-09-26 | CT_ITS ---
EXAMINATION: CT diagnostic chest wo con DATE: 09/26/2022 16:28 INDICATION: lung nodule TECHNIQUE: Computed tomography (CT) of the chest was performed without intravenous contrast. Addition al 3D reconstructions utilizing coronal maximum intensity projection (MIP) were performed. Automated exposure control and iterative reconstruction technique were employed. The dose-length product was 65 .68 mGy-cm. COMPARISON: 09/11/2021 FINDINGS: Suggestion of slight increase in size of a previously 3 mm, currently 4 mm nodule along the right mid dle lobe side of the minor fissure, potentially an intrafissural lymph node. No interval change in a couple 4 mm right lower lobe nodules. Unchanged 2 mm calcified left upper lobe nodule consistent with old granulomatous disease. No pneumonia, pulmonary edema or pleural effusion. Heart size is normal. No pericardial effusion. Thoracic aorta is normal in caliber. No pathologically enlarged thoracic lym phadenopathy. Bilateral mastectomies with breast prostheses. Surgical clip in the left axillary/subpe ctoral region consistent with prior lymph node dissection. Visualized upper abdomen is unremarkable. Mild S-shaped curvature of the thoracic spine with mild spondylosis. IMPRESSION: 1. . A few unchanged small pulmonary nodules with slight increase in size of a previously 3 mm, now 4 mm nodule along the right minor fissure most likely a superficial lymph node. Consider 6 month follo w-up low-dose noncontrast chest CT. Reviewed, dictated and finalized at location A. D WINDER IMPRESSION: 1. . A few unchanged small pulmonary nodules with slight increase in size of a previously 3 mm, now 4 mm nodule along the right minor fissure most likely a moore perficial lymph node. Consider 6 month follow-up low-dose noncontrast chest CT.
== END 2022-09-26 15:13 | disposition home or self-care (01) ==
PROVIDERS: PCP Family Medicine; Visit Provider Nurse Practitioner
DX: R91.1 Solitary pulmonary nodule (principal); R91.8 Other nonspecific abnormal finding of lung field; Z85.3 Personal history of malignant neoplasm of breast
CPT/HCPCS: 71250; 76641

== ENCOUNTER 2022-10-10 14:05 | Outpatient (CLI) | payer OTHER, SELFPAY ==
--- NOTE | ~2022-10-10 | XR_ITS ---
EXAMINATION: XR hand RT min 3V DATE: 10/10/2022 14:24 INDICATION: Right hand pain. TECHNIQUE: 3 views of right hand were obtained. COMPARISON: None. FINDINGS: Bone alignment is normal. No fracture. There is mild osteoarthritis of first carpometacarpa l joint, first metacarpophalangeal joint, some of the interphalangeal joints. There is moderate osteo arthritis of fifth proximal interphalangeal joint. There is heterotopic ossification ulnar and dorsal to head of fifth proximal phalanx. IMPRESSION: 1. Polyarticular osteoarthritis. Reviewed, dictated and finalized at location A. ROE PROCESSOR
== END 2022-10-10 14:06 | disposition home or self-care (01) ==
LOC: ANHIMG 14:06
PROVIDERS: PCP Family Medicine; Visit Provider Nurse Practitioner
DX: M19.041 Primary osteoarthritis, right hand (principal)
CPT/HCPCS: 73130

== ENCOUNTER 2022-11-12 12:01 | Observation (INO) | payer OTHER, SELFPAY ==
[2022-11-12] VITALS (19 sets, daily range): BP systolic 125–162; BP diastolic 68–97; PULSE 64–96; RESP 14–20; TEMP 36.6–36.9; O2SAT 88–100; BMI 23.0
--- NOTE | ~2022-11-12 | XR_ITS ---
EXAMINATION: XR chest 1V portable DATE: 11/12/2022 12:40 INDICATION: Shortness of breath. Cough. Chest pain. TECHNIQUE: A single frontal view of the chest was obtained. COMPARISON: Chest 2 views 06/22/2022, chest CT 09/26/2022 FINDINGS: There are airspace opacities in right infrahilar region. No pleural effusion or pneumothora x. The heart size is normal. IMPRESSION: 1. Airspace opacities in right infrahilar region, consistent with pneumonia. Reviewed, dictated and finalized at location A.
--- NOTE | 2022-11-12 12:06 | ED.SOB ---
HPI - SOB/Dyspnea General Chief Complaint: Shortness of Breath/Dyspnea Stated Complaint: shortness of breath Time Seen by Provider: 11/12/22 12:02 Source: patient Mode of arrival: ambulatory Limitations: no limitations History of Present Illness HPI Narrative: 47-year-old female, smoker, alcoholic in remission with breast cancer status post bilateral mastectomy, lung nodules, dysfunctional uterine bleeding status post endometrial ablation, hypertension, dyslipidemia, arthritis, chronic low back pain, COPD, MARIEL presents to the ER with a one-week history of -- worsening shortness of breath. She is saturating 97% on room air -- Cough with mucopurulent sputum -- wheezing no chest pain or fever. No upper respiratory tract symptoms. MD elicited complaint: shortness of breath and cough Pertinent past history: COPD Onset (ago): week(s) ( started 1 week ago) Severity: moderate Exacerbating factors: nothing Relieving factors: nothing Known history of: COPD Associated symptoms: denies other symptoms, cough, wheezing and sputum production Treatment prior to arrival: none Related Data Home oxygen amount: none Home Medications Medication Instructions Recorded Confirmed No Home Medications 11/12/22 11/12/22 Allergies Allergy/AdvReac Type Severity Reaction Status Date / Time latex Allergy Intermediate Swelling Verified 11/12/22 12:02 lisinopril Allergy Intermediate Cough Verified 11/12/22 12:02 naproxen AdvReac Unknown Unknown Verified 11/12/22 12:02 Review of Systems Review of Systems: All systems reviewed & are unremarkable except as noted in HPI and below Constitutional: Constitutional: Reports as per HPI, Reports no additional constitutional complaints and Reports weakness Eyes: Eyes: Reports as per HPI and Reports no additional eye complaints ENT: Reports system reviewed and no additional complaints, except as documented and Reports as per HPI Cardiovascular: Cardiovascular: Reports as per HPI and Reports no additional cardiovascular complaints Respiratory: Respiratory: Reports as per HPI, Reports no additional respiratory complaints, Reports cough, Reports dyspnea and Reports wheezing Gastrointestinal: Gastrointestinal: Reports as per HPI and Reports no additional gastrointestinal complaints Genitourinary: Genitourinary: Reports no additional female genitourinary complaints Musculoskeletal: Musculoskeletal: Reports no additional musculoskeletal complaints Integumentary/Breasts: Skin/Breast: Reports system reviewed and no additional complaints, except as docu and Reports as per HPI Neurologic: Reports system reviewed and no additional complaints, except as documented Psychiatric: Psychiatric: Reports no additional psychiatric complaints and Reports as per HPI Endocrine: Endocrine: Reports no additional endocrine complaints and Reports as per HPI Hematologic/Lymphatic: Hematologic/Lymphatic: Reports no additional hematologic/lymphatic complaints and Reports as per HPI Allergic/Immunologic: Allergic/Immunologic: Reports no additional allergic/immunologic complaints and Reports as per HPI PMFSH Past Medical History Medical History Alcohol abuse, in remission Carpal tunnel syndrome on left Family history of colon cancer History of abnormal uterine bleeding History of breast cancer in adulthood History of broken leg History of femur fracture Hx of dysfunctional uterine bleeding Hyperglycemia Sludge in gallbladder Surgical History Surgical History History of breast surgery History of endometrial ablation Hx of appendectomy Hx of bilateral mastectomy Hx of eye surgery Hx of foot surgery bilateral Family History Family History Father Hypertension Mother Asthma Family history of elevated blood lipids Sibling Family history of elevat
--- NOTE | 2022-11-12 12:17 | ECG_ITS ---
Measurements Intervals [place] Rate: 71 P: 63 GA: 145 QRS: 76 QRSD: 97 T: 34 QT: 369 QTc: 401 Interpretive Statements SINUS RHYTHM MINIMAL Q WAVES- INF/LAT LEADS BORDERLINE ECG COMPARED TO ECG 06/22/2022 16:32:37 NO SIGNIFICANT CHANGES Electronically Signed On 11-12-2022 12:49:32 CDT by Jorge Tapia D.O.
[2022-11-12] MEDS: IPRATROPIUM 0.5 MG/ALBUTEROL SULFATE 2.5 MG AMPUL.NEB 3 ML INHALATION ×3 (12:30→23:37)
[2022-11-12 12:45] LABS: Basophils Absolute Auto 0.06 K/mm3 (0.00-0.10); Basophils Percent Auto 0.4 % (0.0-1.0); Eosinophils Absolute Auto 0.03 K/mm3 (0.02-0.50); Eosinophils Percent Auto 0.2 % (1.0-6.0); Hematocrit 43.3 % (35.0-49.0); Hemoglobin 14.3 g/dL (12.0-15.0); Immature Granulocyte Absolute 0.04 K/mm3 (0.00-0.00); Immature Granulocyte Percent A 0.3 % (0.0-0.0); Lymphocytes Absolute Auto 2.72 K/mm3 (1.10-4.50); Lymphocytes Percent Auto 19.8 % (18.0-42.0); Mean Platelet Volume 10.2 fl (9.2-11.8); Monocytes Absolute Auto 1.09 K/mm3 (0.10-0.90); Monocytes Percent Auto 7.9 % (2.0-11.0); Neutrophils Absolute Auto 9.8 K/mm3 (1.7-7.2); Neutrophils Percent Auto 71.4 % (50.0-70.0); Platelet Count Result 283 K/mm3 (150-420); Red Blood Count 4.76 M/mm3 (4.20-5.40); Red Cell Distribution Width 14.1 % (11.6-14.4); White Blood Count 13.7 K/mm3 (4.8-10.8)
[2022-11-12] MEDS: methylPREDNISolone SOD SUCC 125 MG VIAL IV PUSH (12:47)
[2022-11-12 13:00] LABS: D Dimer 0.21 mg/L (0.19-0.50); Partial Thromboplastin Time 31.9 SEC (23.90-30.70); Prothrombin Time 10.6 Seconds (9.50-12.10)
[2022-11-12 13:04] LABS: Troponin I 6.6 ng/L (0.00-60.4)
[2022-11-12 13:06] LABS: Alanine Aminotransferase 15 U/L (14-59); Albumin Level 3.4 g/dL (3.4-5.0); Alkaline Phosphatase 114 U/L (46-116); Anion Gap 9 mmol/L (8-16); Aspartate Amino Transferase 16 U/L (15-37); Bilirubin,Total 0.3 mg/dL (0.00-1.00); Blood Urea Nitrogen 12 mg/dL (7-18); Calcium 8.4 mg/dL (8.5-10.1); Carbon Dioxide 29 mmol/L (21-32); Chloride 105 mmol/L (98-108); Estimated Glomerular Filt Rate > 60; Glucose 110 mg/dL (70-99); NT Pro B Type Natriuretic Pept 143 pg/mL (0-125); Osmolality Calculated 296 mOsm/kg (285-295); Potassium 3.3 mmol/L (3.5-5.1); Sodium 143 mmol/L (136-145); Total Protein 7.4 g/dL (6.4-8.2)
[2022-11-12 13:13] LABS: Influenza A QL RT-PCR Negative (Negative); Influenza B QL RT-PCR Negative (Negative); SARS-CoV-2 RNA PCR Negative (Negative)
[2022-11-12 13:14] LABS: RSV RNA, RT-PCR Negative (Negative)
[2022-11-12] MEDS: ALBUTEROL SULFATE NEB 2.5 MG/3 ML INH INHALATION (13:24)
[2022-11-12] MEDS: LACTATED RINGERS 500 ML 999 ML IV CONT (14:34)
[2022-11-12] MEDS: ONDANSETRON INJ 4 MG/2 ML VIAL IV PUSH (16:00)
[2022-11-12] MEDS: methylPREDNISolone SOD SUCC 125 MG VIAL 60 MG IV PUSH (17:07)
[2022-11-13] VITALS (12 sets, daily range): BP systolic 109–130; BP diastolic 62–74; PULSE 57–87; RESP 14–20; TEMP 35.9–37; O2SAT 94–99
[2022-11-13] MEDS: IPRATROPIUM 0.5 MG/ALBUTEROL SULFATE 2.5 MG AMPUL.NEB 3 ML INHALATION (05:03)
[2022-11-13 09:26] LABS: Hematocrit 42.5 % (35.0-49.0); Hemoglobin 13.5 g/dL (12.0-15.0); Mean Corpuscular HGB Conc 31.8 g/dL (32.0-36.0); Mean Corpuscular Hemoglobin 29.1 pg (27.0-31.0); Mean Corpuscular Volume 91.6 fL (78.0-102.0); Mean Platelet Volume 10.3 fl (9.2-11.8); Platelet Count Result 287 K/mm3 (150-420); Red Blood Count 4.64 M/mm3 (4.20-5.40); Red Cell Distribution Width 14.2 % (11.6-14.4)
[2022-11-13 09:43] LABS: Anion Gap 9 mmol/L (8-16); Blood Urea Nitrogen 13 mg/dL (7-18); Calcium 8.7 mg/dL (8.5-10.1); Carbon Dioxide 30 mmol/L (21-32); Chloride 105 mmol/L (98-108); Estimated CRCL calculation 82 ml/min; Estimated Glomerular Filt Rate > 60; Glucose 167 mg/dL (70-99); Osmolality Calculated 302 mOsm/kg (285-295); Potassium 3.9 mmol/L (3.5-5.1); Sodium 144 mmol/L (136-145)
[2022-11-13] MEDS: ENOXAPARIN 40 MG/0.4 ML SYRINGE SUB-Q (09:51)
[2022-11-13] MEDS: methylPREDNISolone SOD SUCC 125 MG VIAL 60 MG IV PUSH (09:51)
--- NOTE | 2022-11-13 10:07 | PM.IMHP ---
H&P: HPI History of Present Illness Date/Time: 11/13/22 10:07 Chief Complaint: Shortness of breath, Coughing , Weakness Narrative: This is a 47 year old female that presented to the emergency room with shortness of breath and feeling sick for the past 2 weeks per patient. Pt is a pack a day smoker since she was 11 years old. Patient informes me she has COPD/Emphysema, Asthma, and she had breast cancer with a double mastectomy and she has had surgery on her orbit, femur, appendex removed, hypertension and she denies taking any medication at home. Patient states she was just seen by her doctor for her cancer. Mr Analilia states she is feeling better than when she came in but she is still feeling weak. Patient was diagnosised with pneumnia seen on her chest xray. Patient does sound course with scattered wheezes throughout. She has been given IV antibiotics, IV Steroids, and around the clock breathing treatments we will continue this course at this time and reevaluate in the morning. I did decrease the steroids as patient feels like it is making her to [facility] and I switched her breathing treatments at this time we will continue to monitor her labs as well. Patient WBC went up although this may be due to the high dose of steroids at this time we will contine to monitor. Patient denies any use of nebulizer at home which she would benefit from at home due to her increased wheezing and courseness . Review of Systems Review of Systems: Shortness of breath All systems reviewed & are unremarkable except as noted in HPI and below PMFSH Past Medical History Medical History (Updated 11/13/22 @ 11:49 by Matteo Campos NP) Alcohol abuse, in remission Carpal tunnel syndrome on left Family history of colon cancer History of abnormal uterine bleeding History of breast cancer in adulthood History of broken leg History of femur fracture Hx of dysfunctional uterine bleeding Hyperglycemia Hypokalemia Leucocytosis Sludge in gallbladder Surgical History Surgical History History of breast surgery History of endometrial ablation Hx of appendectomy Hx of bilateral mastectomy Hx of eye surgery Hx of foot surgery bilateral Family History Family History Father Hypertension Mother Asthma Family history of elevated blood lipids Sibling Family history of elevated blood lipids Carcinoma of colon Social History Social History Smoking packs per day: 1 Smoking cigarettes per day: 20.0 Years smoked: 36 Smoking pack-years: 36.00 Smoking status: Current every day smoker Tobacco type: cigarettes Second hand tobacco smoke exposure: Yes Alcohol intake: current Drinks per week: 14 Substance use: current Substance use type: marijuana Last use: 1 month ago Lack of Transportation: No Lack of Food: Never True Current Housing: I Do Not Have Housing Concerned About Future Housing: No Difficulty Paying Gas/Electric Bills: No Difficulty Paying for Meds: No Currently Unemployed: No Education: Trade/Vocational Certificate Difficulty w/ Childcare or Family Care: No Living arrangements: alone Occupation/Education: occupation 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
[2022-11-13] MEDS: HYDROcodone/acetaminophen (*CRX) 5-325 MG TABLET 1 TAB PO ×2 (12:29→18:09)
[2022-11-13] MEDS: LEVALBUTEROL NEB 1.25 MG/3 ML INHALATION ×2 (14:01→22:50)
[2022-11-13] MEDS: traMADol HCL (*CRX) 50 MG TABLET PO (15:46)
[2022-11-13] MEDS: methylPREDNISolone SOD SUCC 125 MG VIAL 40 MG IV PUSH (17:25)
[2022-11-14] VITALS (8 sets, daily range): BP systolic 121–130; BP diastolic 63–79; PULSE 58–91; RESP 14–20; TEMP 36.2–36.7; O2SAT 93–96
[2022-11-14] MEDS: HYDROcodone/acetaminophen (*CRX) 5-325 MG TABLET 1 TAB PO ×4 (00:12→20:35)
[2022-11-14] MEDS: traZODone HCL 50 MG TABLET PO ×2 (00:13→20:35)
[2022-11-14] MEDS: LEVALBUTEROL NEB 1.25 MG/3 ML INHALATION ×2 (05:04→13:28)
[2022-11-14 05:34] LABS: Hematocrit 38.9 % (35.0-49.0); Hemoglobin 12.3 g/dL (12.0-15.0); Mean Corpuscular HGB Conc 31.6 g/dL (32.0-36.0); Mean Corpuscular Hemoglobin 29.3 pg (27.0-31.0); Mean Corpuscular Volume 92.6 fL (78.0-102.0); Mean Platelet Volume 10.6 fl (9.2-11.8); Platelet Count Result 279 K/mm3 (150-420); Red Cell Distribution Width 14.4 % (11.6-14.4); White Blood Count 19.9 K/mm3 (4.8-10.8)
[2022-11-14 05:43] LABS: Anion Gap 5 mmol/L (8-16); Blood Urea Nitrogen 15 mg/dL (7-18); Calcium 8.4 mg/dL (8.5-10.1); Carbon Dioxide 30 mmol/L (21-32); Chloride 108 mmol/L (98-108); Estimated CRCL calculation 100 ml/min; Estimated Glomerular Filt Rate > 60; Glucose 127 mg/dL (70-99); Osmolality Calculated 298 mOsm/kg (285-295); Potassium 4.7 mmol/L (3.5-5.1); Sodium 143 mmol/L (136-145)
--- NOTE | 2022-11-14 06:00 | PM.IMPN ---
Progress Note: A&P Assessment and Plan (1) Community acquired pneumonia: Code(s): J18.9 - Pneumonia, unspecified organism Status: Acute Assessment and Plan: Chest xray shows airspace opacities right infrahilar region consistent with pneumonia Azithromycin and Rocephin Q 24 hours, changed to PO antibiotics at this time IV Solu-Medrol 40 mg q.12, 40mg PO daily for a total of 5 days Continue breathing treatments, DuoNebs Q4H oxygen, wean to maintain saturations >90% IS q.2 hours while awake, add pep therapy WBC continue to trend up currently at 19.9 Continue to trend labs (2) COPD exacerbation: Code(s): J44.1 - Chronic obstructive pulmonary disease with (acute) exacerbation Status: Acute Assessment and Plan: Wheezes, shortness of breath, changes in sputum production in larger quantities Continue antibiotics, azithromycin and cefdinir Change solumedrol to PO prednisone sputum culture ordered smoking cessation Patient would benefit from a home nebulizer (3) Tobacco abuse: Code(s): Z72.0 - Tobacco use Status: Acute Assessment and Plan: smoking cessation (4) Leucocytosis: Code(s): D72.829 - Elevated white blood cell count, unspecified Status: Acute Assessment and Plan: reported 13.7>17.0>19.9 more than likely induced from steroid use, however could be from pneumonia as well Change IV antibiotics to PO antibiotics at this point Continue to trend labs Sputum culture Monitor for worsening symptoms (5) Hypokalemia: Code(s): E87.6 - Hypokalemia Status: Acute Assessment and Plan: potassium today 3.9 continue to monitor his stable within normal limits Resolved Potassium is 4.7 today Continue to trend labs Time Spent With Patient Time: 51 minutes Time with patient: Greater than 35 minutes Subjective Date/time seen: 11/14/22 06:00 Interval history: 11/14/22 0600 Patient is lying in bed. Patient states that she feels pretty rough today. She also notes worsening wheezes and cough. She denies any current chest pain, nausea, vomiting, diarrhea or constipation. she did state that she does have a cough and does feel short of breath with light activity. WBCs are continuing to rise and is currently at 19.9. She does have very coarse wheezes bilateral lower bases and right middle lobe. 11/13/22? 10:07 This is a 47 year old female that presented to the emergency room with shortness of breath? and feeling sick for the past 2 weeks per patient. Pt is a pack a day smoker since she was 11 years old. Patient informes me she has COPD/Emphysema, Asthma, and she had breast cancer with a double mastectomy and she has had surgery on her orbit, femur, appendex removed, hypertension and she denies taking any medication at home. Patient states she was just seen by her doctor for her cancer.? Mr Billingsley states she is feeling better than when she came in but she is still feeling weak. Patient was diagnosised with pneumnia seen on her chest xray. Patient does sound course with scattered wheezes throughout. She has been given IV antibiotics, IV Steroids, and around the clock breathing treatments we will continue this course at this time and reevaluate in the morning. I did decrease the steroids as patient feels like it is making her to [facility] and I switched her breathing treatments at this time we will continue to monitor her labs as well. Patient WBC went up although this may be due to the high dose of steroids at this time we will contine to monitor. Patient denies any use of nebulizer at home which she would benefit from at home due to her increased wheezing and courseness . Review of Systems Review of Systems: All systems reviewed & are unremarkable except as noted in HPI and below Exam Narrative: General: well-nourished,
--- NOTE | 2022-11-14 06:00 | P.PNIM_ITS ---
Progress Note: A&P Assessment and Plan (1) Community acquired pneumonia: Code(s): J18.9 - Pneumonia, unspecified organism Status: Acute Assessment and Plan: * Chest xray shows airspace opacities right infrahilar region consistent with pneumonia * Azithromycin and Rocephin Q 24 hours, changed to PO antibiotics at this time * IV Solu-Medrol 40 mg q.12, 40mg PO daily for a total of 5 days * Continue breathing treatments, DuoNebs Q4H * oxygen, wean to maintain saturations >90% * IS q.2 hours while awake, add pep therapy * WBC continue to trend up currently at 19.9 * Continue to trend labs (2) COPD exacerbation: Code(s): J44.1 - Chronic obstructive pulmonary disease with (acute) exacerbation Status: Acute Assessment and Plan: * Wheezes, shortness of breath, changes in sputum production in larger quantities * Continue antibiotics, azithromycin and cefdinir * Change solumedrol to PO prednisone * sputum culture ordered * smoking cessation * Patient would benefit from a home nebulizer (3) Tobacco abuse: Code(s): Z72.0 - Tobacco use Status: Acute Assessment and Plan: * smoking cessation (4) Leucocytosis: Code(s): D72.829 - Elevated white blood cell count, unspecified Status: Acute Assessment and Plan: * reported 13.7>17.0>19.9 more than likely induced from steroid use, however could be from pneumonia as well * Change IV antibiotics to PO antibiotics at this point * Continue to trend labs * Sputum culture * Monitor for worsening symptoms (5) Hypokalemia: Code(s): E87.6 - Hypokalemia Status: Acute Assessment and Plan: * potassium today 3.9 continue to monitor his stable within normal limits * Resolved Potassium is 4.7 today * Continue to trend labs Time Spent With Patient Time: 51 minutes Time with patient: Greater than 35 minutes Subjective Date/time seen: 11/14/22 06:00 Interval history: 11/14/22 0600 Patient is lying in bed. Patient states that she feels pretty rough today. She also notes worsening wheezes and cough. She denies any current chest pain, nausea, vomiting, diarrhea or constipation. she did state that she does have a cough and does feel short of breath with light activity. WBCs are continuing to rise and is currently at 19.9. She does have very coarse wheezes bilateral lower bases and right middle lobe. 11/13/22? 10:07 This is a 47 year old female that presented to the emergency room with shortness of breath? and feeling sick for the past 2 weeks per patient. Pt is a pack a day smoker since she was 11 years old. Patient informes me she has COPD/Emphysema, Asthma, and she had breast cancer with a double mastectomy and she has had surgery on her orbit, femur, appendex removed, hypertension and she denies taking any medication at home. Patient states she was just seen by her doctor for her cancer.? Mr Billingsley states she is feeling better than when she came in but she is still feeling weak. Patient was diagnosised with pneumnia seen on her chest xray. Patient does sound course with scattered wheezes throughout. She has been given IV antibiotics, IV Steroids, and around the clock breathing treatments we will continue this course at this time and reevaluate in the morning. I did decrease the ster
[2022-11-14] MEDS: AZITHROMYCIN 250 MG TABLET 500 MG PO (06:30)
--- NOTE | 2022-11-14 06:49 | PC.NURSE ---
patient has been instructed on new medication changes of antibiotic and steroid changed to oral. also instructed on needing sputum culture, instructed patient on how to obtain as a clean catch. pt gave verbal understanding.
[2022-11-14] MEDS: predniSONE 20 MG TABLET 40 MG PO (08:15)
[2022-11-14] MEDS: CEFDINIR 300 MG CAPSULE PO ×2 (09:35→20:35)
[2022-11-15] VITALS: BP 135/81; PULSE 74; RESP 16; TEMP 36.3; O2SAT 96
[2022-11-15 05:31] LABS: Basophils Absolute Auto 0.03 K/mm3 (0.00-0.10); Basophils Percent Auto 0.2 % (0.0-1.0); Eosinophils Absolute Auto 0.01 K/mm3 (0.02-0.50); Eosinophils Percent Auto 0.1 % (1.0-6.0); Hematocrit 41.6 % (35.0-49.0); Hemoglobin 13.1 g/dL (12.0-15.0); Immature Granulocyte Absolute 0.11 K/mm3 (0.00-0.00); Immature Granulocyte Percent A 0.7 % (0.0-0.0); Lymphocytes Percent Auto 23.1 % (18.0-42.0); Mean Corpuscular HGB Conc 31.5 g/dL (32.0-36.0); Mean Corpuscular Hemoglobin 29.4 pg (27.0-31.0); Mean Corpuscular Volume 93.3 fL (78.0-102.0); Mean Platelet Volume 10.7 fl (9.2-11.8); Monocytes Absolute Auto 0.77 K/mm3 (0.10-0.90); Monocytes Percent Auto 5.1 % (2.0-11.0); Neutrophils Absolute Auto 10.7 K/mm3 (1.7-7.2); Neutrophils Percent Auto 70.8 % (50.0-70.0); Platelet Count Result 304 K/mm3 (150-420); Red Blood Count 4.46 M/mm3 (4.20-5.40); Red Cell Distribution Width 14.5 % (11.6-14.4); White Blood Count 15.2 K/mm3 (4.8-10.8)
[2022-11-15 05:37] VITALS: PULSE 74; RESP 16; O2SAT 96
[2022-11-15] MEDS: LEVALBUTEROL NEB 1.25 MG/3 ML INHALATION (05:40)
[2022-11-15] MEDS: AZITHROMYCIN 250 MG TABLET PO (05:40)
[2022-11-15 05:56] LABS: Alanine Aminotransferase 72 U/L (14-59); Albumin Level 2.8 g/dL (3.4-5.0); Alkaline Phosphatase 101 U/L (46-116); Anion Gap 4 mmol/L (8-16); Aspartate Amino Transferase 30 U/L (15-37); Bilirubin,Total 0.1 mg/dL (0.00-1.00); Blood Urea Nitrogen 18 mg/dL (7-18); Calcium 8.3 mg/dL (8.5-10.1); Carbon Dioxide 33 mmol/L (21-32); Chloride 107 mmol/L (98-108); Estimated CRCL calculation 90 ml/min; Estimated Glomerular Filt Rate > 60; Glucose 88 mg/dL (70-99); Magnesium 2.1 mg/dL (1.8-2.4); Osmolality Calculated 298 mOsm/kg (285-295); Potassium 5.1 mmol/L (3.5-5.1); Sodium 144 mmol/L (136-145); Total Protein 6.2 g/dL (6.4-8.2)
[2022-11-15 06:00] VITALS: PULSE 72; RESP 16; O2SAT 97
--- NOTE | 2022-11-15 06:59 | P.DS_ITS ---
DS: Admitting Diagnosis Discharge Date 11/15/22 0645 Admitting Diagnosis COPD exacerbation, Pneumonia DS: Discharge Diagnosis Discharge Diagnosis (1) Community acquired pneumonia: Code(s): J18.9 - Pneumonia, unspecified organism Status: Acute Assessment and Plan: * Chest xray shows airspace opacities right infrahilar region consistent with pneumonia * Azithromycin and Rocephin Q 24 hours, changed to PO azithromycin and cefdinir * IV Solu-Medrol 40 mg q.12, 40mg PO daily for a total of 5 days * Continue breathing treatments, DuoNebs Q4H * oxygen, wean to maintain saturations >90% * IS q.2 hours while awake, add pep therapy * WBC continue to trend up currently trending down currently at 15.2 * Continue to trend labs (2) COPD exacerbation: Code(s): J44.1 - Chronic obstructive pulmonary disease with (acute) exacerbation Status: Acute Assessment and Plan: * Wheezes, shortness of breath, changes in sputum production in larger quantities * Continue antibiotics, azithromycin and cefdinir * Change solumedrol to PO prednisone * sputum culture ordered * smoking cessation * Patient would benefit from a home nebulizer (3) Tobacco abuse: Code(s): Z72.0 - Tobacco use Status: Acute Assessment and Plan: * smoking cessation (4) Leucocytosis: Code(s): D72.829 - Elevated white blood cell count, unspecified Status: Acute Assessment and Plan: * reported 13.7>17.0>19.9>15.2 more than likely induced from steroid use, however could be from pneumonia as well * Change IV antibiotics to PO antibiotics at this point * Continue to trend labs * Sputum culture pending awaiting results * Monitor for worsening symptoms (5) Hypokalemia: Code(s): E87.6 - Hypokalemia Status: Acute Assessment and Plan: * potassium today 3.9 continue to monitor his stable within normal limits * Resolved Potassium is 5.1 today * Continue to trend labs DS: Summary Hospital Course Hospital Course: Patient is a 39-year-old female with a past medical history breast cancer, hyperglycemia, leukocytosis who presented to the ED with complaints of shortness of breath and feeling not well over the last 2 weeks. Patient is a smoker and has been smoking sit use 11 years old. She also has been diagnosed with COPD, emphysema, asthma. Chest x-ray was performed did showed pneumonia. Patient does have multiple scattered wheezes indication of COPD is as her patient as well. Patient was started on IV ceftriaxone and azithromycin which has been switched to p.o. cefdinir and azithromycin. Steroids have also been switch from IV to p.o. prednisone will need to be continued for total of 5 days. Patient still does have some wheezes however she does state that she felt a lot better. She also states that she is able to be mobile and walk around without feeling short of breath. Patient is on room air and has remained on room air the entire visit. Patient feels well enough to go home. Labs and vital signs are stable at this time. Patient will be ordered a nebulizer machine along with treatment for home use. Patient will need to follow up with leasing director and appointment has been made for her nurse practitioner. Currently patient denies any chest pain, shortness a breath however she does state that she know
--- NOTE | 2022-11-15 06:59 | PM.DS ---
DS: Admitting Diagnosis Discharge Date 11/15/22 0645 Admitting Diagnosis COPD exacerbation, Pneumonia DS: Discharge Diagnosis Discharge Diagnosis (1) Community acquired pneumonia: Code(s): J18.9 - Pneumonia, unspecified organism Status: Acute Assessment and Plan: Chest xray shows airspace opacities right infrahilar region consistent with pneumonia Azithromycin and Rocephin Q 24 hours, changed to PO azithromycin and cefdinir IV Solu-Medrol 40 mg q.12, 40mg PO daily for a total of 5 days Continue breathing treatments, DuoNebs Q4H oxygen, wean to maintain saturations >90% IS q.2 hours while awake, add pep therapy WBC continue to trend up currently trending down currently at 15.2 Continue to trend labs (2) COPD exacerbation: Code(s): J44.1 - Chronic obstructive pulmonary disease with (acute) exacerbation Status: Acute Assessment and Plan: Wheezes, shortness of breath, changes in sputum production in larger quantities Continue antibiotics, azithromycin and cefdinir Change solumedrol to PO prednisone sputum culture ordered smoking cessation Patient would benefit from a home nebulizer (3) Tobacco abuse: Code(s): Z72.0 - Tobacco use Status: Acute Assessment and Plan: smoking cessation (4) Leucocytosis: Code(s): D72.829 - Elevated white blood cell count, unspecified Status: Acute Assessment and Plan: reported 13.7>17.0>19.9>15.2 more than likely induced from steroid use, however could be from pneumonia as well Change IV antibiotics to PO antibiotics at this point Continue to trend labs Sputum culture pending awaiting results Monitor for worsening symptoms (5) Hypokalemia: Code(s): E87.6 - Hypokalemia Status: Acute Assessment and Plan: potassium today 3.9 continue to monitor his stable within normal limits Resolved Potassium is 5.1 today Continue to trend labs DS: Summary Hospital Course Hospital Course: Patient is a 39-year-old female with a past medical history breast cancer, hyperglycemia, leukocytosis who presented to the ED with complaints of shortness of breath and feeling not well over the last 2 weeks. Patient is a smoker and has been smoking sit use 11 years old. She also has been diagnosed with COPD, emphysema, asthma. Chest x-ray was performed did showed pneumonia. Patient does have multiple scattered wheezes indication of COPD is as her patient as well. Patient was started on IV ceftriaxone and azithromycin which has been switched to p.o. cefdinir and azithromycin. Steroids have also been switch from IV to p.o. prednisone will need to be continued for total of 5 days. Patient still does have some wheezes however she does state that she felt a lot better. She also states that she is able to be mobile and walk around without feeling short of breath. Patient is on room air and has remained on room air the entire visit. Patient feels well enough to go home. Labs and vital signs are stable at this time. Patient will be ordered a nebulizer machine along with treatment for home use. Patient will need to follow up with clothes designer and appointment has been made for her nurse practitioner. Currently patient denies any chest pain, shortness a breath however she does state that she know she has some wheezes. She also has been urinating well and her cough is a lot better. She is getting some thick sputum up as well. Awaiting sputum culture at this time. Will adjust antibiotics outpatient when sputum culture results. Patient will be discharged home and nebulizer machine will be picked up and taken to her for further comfort. Smoking cessation education has been given for rater than 8 minutes patient is aware that she needs to quit smoking and stated that she is going to quit smoking. Patient is requesting
[2022-11-15 08:00] VITALS: BP 144/80; PULSE 82; RESP 14; TEMP 36.4; O2SAT 95
[2022-11-15] MEDS: predniSONE 20 MG TABLET 40 MG PO (08:05)
[2022-11-15] MEDS: UMECLIDINIUM/VILANTEROL 62.5-25 MCG ELLIPTA 1 PUFF INHALATION (09:30)
[2022-11-15] MEDS: CEFDINIR 300 MG CAPSULE PO (09:30)
--- NOTE | 2022-11-18 17:27 | PC.NURSE ---
Discharge call back--- Patient states that doscharge instructions were explained. Pt had no questions. Patient states nurses made sure to explain what and why they were doing everything. Patient also stated that this was the best bunch of nurses and best hospital stay ever.
== END 2022-11-15 12:00 | disposition home or self-care (01) ==
LOC: CHSED 14:31 → CHS2ND 14:54
PROVIDERS: Nurse Practitioner; Nurse Practitioner Family; Admitting Provider Internal Medicine; Emergency Provider Internal Medicine Critical Care Medicine; PCP Family Medicine; Visit Provider Internal Medicine
DX: J18.9 Pneumonia, unspecified organism (principal); J44.0 Chronic obstructive pulmonary disease with (acute) lower respiratory infection; J44.1 Chronic obstructive pulmonary disease with (acute) exacerbation; I10 Essential (primary) hypertension; E87.6 Hypokalemia; E78.5 Hyperlipidemia, unspecified; M54.50 Low back pain, unspecified; G89.29 Other chronic pain; G47.33 Obstructive sleep apnea (adult) (pediatric); F17.210 Nicotine dependence, cigarettes, uncomplicated; F10.21 Alcohol dependence, in remission; Z80.0 Family history of malignant neoplasm of digestive organs; Z85.3 Personal history of malignant neoplasm of breast
CPT/HCPCS: 36415; 71045; 80048; 80053; 83605; 83735; 83880; 84484; 85025; 85027; 85380; 85610; 85730; 87070; 87205; 87637; 93005; 94640; 96365; 96367; 96368; 96372; 96375; 96376; 99285; A9270; G0378; G0379; J0456; J0696; J1650; J2405; J2930; J7120; J7512

== ENCOUNTER 2022-11-26 13:39 | Outpatient (CLI) | payer OTHER, SELFPAY ==
[2022-11-26 13:57] LABS: Hematocrit 38.9 % (35.0-49.0); Hemoglobin 12.9 g/dL (12.0-15.0); Mean Corpuscular HGB Conc 33.2 g/dL (32.0-36.0); Mean Corpuscular Hemoglobin 30.3 pg (27.0-31.0); Mean Corpuscular Volume 91.3 fL (78.0-102.0); Mean Platelet Volume 9.6 fl (9.2-11.8); Platelet Count Result 313 K/mm3 (150-420); Red Blood Count 4.26 M/mm3 (4.20-5.40); Red Cell Distribution Width 14.2 % (11.6-14.4); White Blood Count 7.1 K/mm3 (4.8-10.8)
[2022-11-26 14:07] LABS: Hemoglobin A1C 6.1 % (<5.7)
[2022-11-26 14:34] LABS: Rheumatoid Factor Screen Negative (Negative)
[2022-11-26 14:41] LABS: Alanine Aminotransferase 32 U/L (14-59); Albumin Level 3.5 g/dL (3.4-5.0); Alkaline Phosphatase 129 U/L (46-116); Anion Gap 9 mmol/L (8-16); Aspartate Amino Transferase 21 U/L (15-37); Bilirubin,Total 0.5 mg/dL (0.00-1.00); Blood Urea Nitrogen 17 mg/dL (7-18); Calcium 8.5 mg/dL (8.5-10.1); Carbon Dioxide 27 mmol/L (21-32); Chloride 107 mmol/L (98-108); Cholesterol 220 mg/dL (0-200); Estimated Glomerular Filt Rate > 60; Glucose 118 mg/dL (70-99); HDL Direct 88 mg/dL (40-60); LDL Cholesterol Calculated 122 mg/dL (<130); Osmolality Calculated 298 mOsm/kg (285-295); Sodium 143 mmol/L (136-145); Thyroid Stimulating Hormone 1.09 uIU/mL (0.36-3.74); Total Protein 6.4 g/dL (6.4-8.2); Triglycerides 52 mg/dL (0-150); Uric Acid 4.3 mg/dL (2.6-6.0)
[2022-11-26 14:42] LABS: CRP < 0.5 mg/dL (0.0-0.9)
[2022-11-26 14:52] LABS: Erythrocyte Sedimentation Rate 15 mm/hr (0-15)
[2022-11-28 17:04] LABS: Vitamin D 25 Hydroxy 15 ng/mL (30-100)
== END 2022-11-26 13:40 | disposition home or self-care (01) ==
LOC: CHSLAB 13:41
PROVIDERS: Nurse Practitioner; Visit Provider Nurse Practitioner
DX: Z13.1 Encounter for screening for diabetes mellitus (principal); Z13.21 Encounter for screening for nutritional disorder; Z13.29 Encounter for screening for other suspected endocrine disorder; M10.9 Gout, unspecified; Z13.6 Encounter for screening for cardiovascular disorders; Z13.220 Encounter for screening for lipoid disorders; M79.641 Pain in right hand
CPT/HCPCS: 36415; 80053; 80061; 82306; 83036; 84443; 84550; 85027; 85652; 86038; 86140; 86430

== ENCOUNTER 2023-02-21 06:14 | Emergency (ER) | payer OTHER, SELFPAY ==
[2023-02-21] VITALS (17 sets, daily range): BP systolic 117–152; BP diastolic 75–98; PULSE 68–84; RESP 20; TEMP 36.6–36.7; O2SAT 92–100
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
--- NOTE | ~2023-02-21 | XR_ITS ---
EXAMINATION: XR foot RT min 3V DATE: 02/21/2023 08:12 INDICATION: Right foot pain. TECHNIQUE: 3 views of right foot were obtained. COMPARISON: None. FINDINGS: Bone alignment is normal. There is a nondisplaced fracture of lateral aspect of base of fir st distal phalanx. There is mild osteoarthritis of first metatarsophalangeal joint and some of the in terphalangeal joints. IMPRESSION: 1. Nondisplaced fracture of lateral base of first distal phalanx. Reviewed, dictated and finalized at location A.
--- NOTE | ~2023-02-21 | XR_ITS ---
EXAMINATION: XR knee RT 3V DATE: 02/21/2023 07:24 INDICATION: Right knee injury. TECHNIQUE: 3 views of right knee including weightbearing views were obtained. COMPARISON: Right knee radiographs 04/09/2006 FINDINGS: Bone alignment is normal. No fracture. There is mild tricompartmental osteoarthritis. There is a small knee joint effusion. IMPRESSION: 1. Mild right knee osteoarthritis. 2. Small right knee joint effusion. Reviewed, dictated and finalized at location A.
--- NOTE | ~2023-02-21 | CT_ITS ---
Noncontrast CT scan of the cervical spine Technique: Multiple contiguous axial [address] images of the cervical spine were obtained and rec onstructed in 2D sagittal and coronal planes on the acquisition scanner. Dose reduction technique was used on this scan by utilizing automated exposure control, adjustment of the mA and/or kV according to patient size. The dose-length product (DLP) was 304.10 mGy-cm. Clinical History: Pain COMPARISON: 07/17/2022 Findings: No acute fracture. Osseous alignment is unchanged from prior exam. Stable minimal grade 1 retrolisthesis of C6 over C7. Stable severe degenerative disc narrowing at C6-C7. No prevertebral sof t tissue swelling. There is right neural foraminal narrowing at C3-C4, with severe right facet arthropathy. There is jacob ateral neural foraminal narrowing at C6-C7, disc osteophyte complex present. There is probable mild c anal stenosis at this level. Impression: No acute fracture. Stable minimal grade 1 retrolisthesis of C6 over C7. Moderate to advanced degenerative spondylosis at C6-C7, as detailed above. Right neural foraminal narrowing at C3-C4. Reviewed, dictated and finalized at location . Impression: No acute fracture. Stable minimal grade 1 retrolisthesis of C6 over C7. Moderate to advanced degenerative spondylosis at C6-C7, as detailed above. Right neural foraminal narrowing at C3-C4.
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
--- NOTE | ~2023-02-21 | CT_ITS ---
Non-contrast Head CT History: Head injury COMPARISON: 07/17/2022 Technique: Axial non-contrast imaging of the brain was performed. Dose reduction technique was used on this scan by utilizing automated exposure control and iterative reconstruction technique. The dose -length product (DLP) was 681.00 mGy-cm. Findings: There is no evidence of intracranial hemorrhage, mass lesion, or acute infarct. Brain par enchyma appears normal. The ventricles and subarachnoid spaces are normal in size. The calvarium ap pears normal. The visualized paranasal sinuses and mastoid air cells are clear. Stable orthopedic avendano rdware at the floor of the right orbit. Impression: No acute abnormality seen. Reviewed, dictated and finalized at location . Impression: No acute abnormality seen.
[2023-02-21] MEDS: MORPHINE SULFATE (*CRX) 4 MG/ML INJ IV PUSH (06:25)
--- NOTE | 2023-02-21 06:31 | ECG_ITS ---
Measurements Intervals Painter Rate: 71 P: 64 DC: 159 QRS: 49 QRSD: 95 T: 38 QT: 395 QTc: 432 Interpretive Statements SINUS RHYTHM MINIMAL Q WAVES- INF/LAT LEADS BORDERLINE ECG COMPARED TO ECG 11/12/2022 12:36:49 NO SIGNIFICANT CHANGES Electronically Signed On 02-21-2023 8:10:06 CDT by Jorge Tapia D.O.
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
[2023-02-21 06:44] LABS: Basophils Absolute Auto 0.05 K/mm3 (0.00-0.10); Basophils Percent Auto 0.3 % (0.0-1.0); Eosinophils Absolute Auto 0.14 K/mm3 (0.02-0.50); Eosinophils Percent Auto 0.9 % (1.0-6.0); Hemoglobin 14.1 g/dL (12.0-15.0); Immature Granulocyte Percent A 0.6 % (0.0-0.0); Lymphocytes Absolute Auto 1.52 K/mm3 (1.10-4.50); Lymphocytes Percent Auto 9.3 % (18.0-42.0); Mean Corpuscular HGB Conc 32.8 g/dL (32.0-36.0); Mean Corpuscular Hemoglobin 30.7 pg (27.0-31.0); Mean Corpuscular Volume 93.5 fL (78.0-102.0); Mean Platelet Volume 10.2 fl (9.2-11.8); Monocytes Absolute Auto 1.05 K/mm3 (0.10-0.90); Monocytes Percent Auto 6.4 % (2.0-11.0); Neutrophils Absolute Auto 13.5 K/mm3 (1.7-7.2); Neutrophils Percent Auto 82.5 % (50.0-70.0); Platelet Count Result 336 K/mm3 (150-420); Red Cell Distribution Width 13.6 % (11.6-14.4); White Blood Count 16.4 K/mm3 (4.8-10.8)
[2023-02-21] MEDS: HYDROmorphone HCL INJ (*CRX) 2 MG/ML VIAL 0.5 MG IV PUSH (06:50)
[2023-02-21] MEDS: SODIUM CHLORIDE 0.9% IV 1,000 ML 999 ML IV CONT (06:51)
[2023-02-21 06:56] LABS: Alanine Aminotransferase 40 U/L (14-59); Albumin Level 4.2 g/dL (3.4-5.0); Alkaline Phosphatase 122 U/L (46-116); Anion Gap 10 mmol/L (8-16); Aspartate Amino Transferase 45 U/L (15-37); Bilirubin,Total 0.4 mg/dL (0.00-1.00); Blood Urea Nitrogen 19 mg/dL (7-18); Calcium 9.1 mg/dL (8.5-10.1); Carbon Dioxide 28 mmol/L (21-32); Chloride 101 mmol/L (98-108); Creatine Kinase 702 U/L (26-192); Estimated CRCL calculation 76 ml/min; Estimated Glomerular Filt Rate > 60; Glucose 116 mg/dL (70-99); Osmolality Calculated 291 mOsm/kg (285-295); Sodium 139 mmol/L (136-145); Total Protein 7.7 g/dL (6.4-8.2); Troponin I 7.3 ng/L (0.00-60.4)
[2023-02-21 06:58] LABS: INR 0.9; Partial Thromboplastin Time 28.6 SEC (23.90-30.70); Prothrombin Time 9.9 Seconds (9.50-12.10)
[2023-02-21] MEDS: HYDROmorphone HCL INJ (*CRX) 2 MG/ML VIAL 1 MG IV PUSH (09:36)
== END 2023-02-21 10:05 | disposition home or self-care (01) ==
PROVIDERS: Emergency Medicine; Emergency Provider Emergency Medicine
DX: S92.424A Nondisplaced fracture of distal phalanx of right great toe, initial encounter for closed fracture (principal); S22.42XA Multiple fractures of ribs, left side, initial encounter for closed fracture; Z85.3 Personal history of malignant neoplasm of breast; Z87.891 Personal history of nicotine dependence; V20.09XA Other motorcycle driver injured in collision with pedestrian or animal in nontraffic accident, initial encounter; Y92.410 Unspecified street and highway as the place of occurrence of the external cause
CPT/HCPCS: 12001; 70450; 71250; 72125; 73030; 73562; 73630; 74176; 80053; 82550; 84484; 85025; 85610; 85730; 93005; 96361; 96374; 96375; 96376; 99284; J1170; J2270; J7030; L0150

== ENCOUNTER 2023-03-19 12:39 | Emergency (ER) | payer OTHER, SELFPAY ==
[2023-03-19 12:48] VITALS: BP 153/91; PULSE 74; RESP 18; TEMP 36.5; O2SAT 98
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
[2023-03-19] MEDS: cefTRIAXone 1 GM VIAL IM (13:45)
[2023-03-19] MEDS: LIDOCAINE HCL 1% LOCAL INJ 10 ML VIAL (13:47)
== END 2023-03-19 13:50 | disposition home or self-care (01) ==
LOC: ANHED 13:26
PROVIDERS: Emergency Provider Nurse Practitioner Family; PCP Family Medicine
DX: L03.114 Cellulitis of left upper limb (principal)
CPT/HCPCS: 96372; 99283; J0696

== ENCOUNTER 2023-05-13 10:15 | Outpatient (CLI) | payer OTHER, SELFPAY ==
--- NOTE | ~2023-05-13 | CT_ITS ---
EXAMINATION:CT diagnostic chest wo con DATE: 05/13/2023 10:36 INDICATION: Lung nodules. TECHNIQUE: Computed tomography (CT) of the chest was performed without intravenous contrast. Automate d exposure control and iterative reconstruction technique were employed. The dose-length product (DLP ) was 79.30 mGy-cm. COMPARISON: Chest CT 02/21/2023, 09/26/2022, 09/11/21 FINDINGS: There is mild emphysema. There is a 4 mm nodule in right lower lobe, stable from 09/11/21. T here is a 4 mm nodule in right lower lobe, stable from 09/11/21. There is a 5 mm nodule in right middl e lobe that measured 5 mm on 09/26/22 and 4 mm on 09/11/21. No pleural effusion. The heart size is musa l. No pericardial effusion. There is mild thoracic spondylosis. There are bilateral mastectomies. IMPRESSION: 1. Pulmonary nodules measuring up to 5 mm, likely benign. Consider noncontrast chest CT in one year. 2. Mild emphysema. Reviewed, dictated and finalized at location E.
== END 2023-05-13 10:16 | disposition home or self-care (01) ==
PROVIDERS: PCP Nurse Practitioner Adult Health; Visit Provider Nurse Practitioner
DX: R91.1 Solitary pulmonary nodule (principal); R91.8 Other nonspecific abnormal finding of lung field; J43.9 Emphysema, unspecified
CPT/HCPCS: 71250

== ENCOUNTER 2023-05-28 21:19 | Outpatient (CLI) | payer OTHER, SELFPAY ==
--- NOTE | 2023-06-20 18:29 | WPDSLEEPSTUD ---
Sleep Study Date of Study: 05/28/23 Ordering Provider: Blaze Daily MD Interpreting Physician: Mirtha Gabriel MD Sleep Study Type: Split Polysomnogram Height: 1.75 m Weight: 79.379 kg Body Mass Index: 25.8 Neck Circumference (inches): 14.75 [place]: 9 Reason for Sleep Study * 05/27/2017- basic sleep study; AHI 18.7, brody 88% * 06/17/2017- difficult CPAP titration, best pressure was CPAP 17 cm; BMI 27.9 Continues to have witnessed apneas Sleep History Gayathri Billingsley is a 47-year-old woman with a history of obstructive sleep apnea diagnosed in 2017, was titrated to 17 cm water pressure. She has moderately severe COPD. She has witnessed apneas, morning headaches, dry mouth on waking and hypersomnia. There is no completed sleep questionnaire to review at tis time. on her prior testing, her questionnaire indicated that she had loud snoring, witnessed apneas, heart palpitations at night, with frequent uncomfortable feelings in her legs at night. She presents for a split night study. [facility] Past Medical History Medical History (Updated 06/20/23 @ 18:36 by Mirtha Gabriel MD) Alcohol abuse, in remission Carpal tunnel syndrome on left Family history of colon cancer History of abnormal uterine bleeding History of breast cancer in adulthood History of broken leg History of femur fracture Hx of dysfunctional uterine bleeding Hyperglycemia Hypokalemia Leucocytosis MARIEL (obstructive sleep apnea) Sludge in gallbladder Surgical History Surgical History History of breast surgery History of endometrial ablation Hx of appendectomy Hx of bilateral mastectomy Hx of eye surgery Hx of foot surgery bilateral Family History Family History Father Hypertension Mother Asthma Family history of elevated blood lipids Sibling Family history of elevated blood lipids Carcinoma of colon Social History Social History Smoking packs per day: 1 Smoking cigarettes per day: 20.0 Years smoked: 36 Smoking pack-years: 36.00 Smoking status: Former smoker Tobacco type: cigarettes Second hand tobacco smoke exposure: Yes Alcohol intake: current Drinks per week: 14 Substance use: current Substance use type: marijuana Last use: 1 month ago Lack of Transportation: No Lack of Food: Never True Current Housing: I Do Not Have Housing Concerned About Future Housing: No Difficulty Paying Gas/Electric Bills: No Difficulty Paying for Meds: No Currently Unemployed: No Education: Trade/Vocational Certificate Difficulty w/ Childcare or Family Care: No Living arrangements: alone Occupation/Education: occupation 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 Gender identity (if verbalized by the patient): Female Spiritual care concerns: No Medications Home Medications Medication Instructions Recorded Confirmed Type ibuprofen 800 mg tablet 800 mg PO TID PRN pain #14 tabs 03/19/23 05/22/23 Rx eszopiclone 2 mg tablet 2 mg PO QHS #1 tablet 05/22/23 05/22/23 Rx fluticasone propionate 50 1 spray intranasal BID #16 grams 05/22/23 05/22/23 Rx mcg/actuation nasal spray,suspension loratadine 10 mg tablet (Allergy 10 mg PO DAILY #30 tabs 05/22/23 05/22/23 Rx Relief (loratadine)) ropinirole 1 mg tablet 1 mg PO BID #60 tabs 05/27/23 Rx fluticasone 250 mcg-salmeterol 50 1 inh inhalation BID #60 ea 05/29/23 Rx mcg/dose blistr powdr for inhalation umeclidinium 62.5 mcg/actuation 1 inh inhalation DAILY #30 ea 05/29/23 Rx blister powder for inhalation (Incruse Ellipta) Sleep Procedure A split night polysomnogram using the [employer] multi-channel system recorded the standard physiologic parameters including EEG, EOG, submentalis EMG, anterior tibialis EMG, EKG, body position, nasal and oral air
[2023-06-21 20:35] VITALS: BMI 25.8
== END 2023-05-29 07:00 | disposition home or self-care (01) ==
PROVIDERS: PCP Nurse Practitioner Adult Health; Visit Provider Internal Medicine Pulmonary Disease
DX: G47.33 Obstructive sleep apnea (adult) (pediatric) (principal)
CPT/HCPCS: 95811

== ENCOUNTER 2023-06-19 08:31 | Outpatient (CLI) | payer MEDICAID, SELFPAY ==
--- NOTE | 2023-06-19 16:40 | WPDSIXMINUTE ---
Six Minute Walk Procedure Procedure Performed Pulmonary Stress Test (6 min walk) Six Minute Walk Six Minute Walk: This is a 6 minute walk test. The test was performed and interpreted in accordance with the 2014 ERS/ATS task force guidelines. Findings: The patient's resting room air oxygen saturation measured by pulse oximetry was 98% and heart rate was 91 bpm. Patient ambulated for 366 meters and oxygen saturation remained 96 to 98%. Heart rate at the end of the study was 100 bpm. The patient did not qualify for supplemental oxygen at rest or with ambulation. There are no prior studies for comparison.
--- NOTE | 2023-06-19 16:41 | P.PCNPFT_ITS ---
PFT Procedure Performed PFT Procedure Performed Spirometry with Pre/Post Bronchodilator Plethysmography (Lung Vol) Diffusing Cap (DLCO) Flow Vol Loop PFT Interpretation This is a pulmonary function test with pre and post-bronchodilator spirometry, plethysmography and diffusing capacity. The test was performed and results interpreted in accordance with the 2019 and 2005 ATS/ERS Task Force guidelines respectively using the Global Lung Function Initiative-2012 reference equations. Patient demonstrated good effort and cooperation. Reproducibility criteria were met. The quality of the pre bronchodilator spirometry maneuver was Grade B and post bronchodilator spirometry maneuver was Grade A. Findings: Spirometry: There is decreased maximal expiratory airflow at all lung volumes with a concave expiratory flow tracing. The contour the inspiratory flow tracing is normal. The pre bronchodilator FVC is 3.66 L, 88% predicted. The pre bronchodilator FEV1 is 1.97 L, 60% predicted. The pre bronchodilator FEV1: FVC ratio is 54%. The post bronchodilator FVC is 4.19 L, representing a 14% increase. The post bronchodilator FEV1 is 2.41 L, representing a 22% increase. The post bronchodilator FEV1: FVC ratio is 57%. Plethysmography: The total lung capacity is 6.82 L, 118% predicted. The functi onal residual capacity is 3.94 L, 120% predicted. The residual volume is 3.15 L, 158% predicted. Diffusing capacity: The diffusing capacity unadjusted for hemoglobin and carboxyhemoglobin is 22.5, 90% predicted. The diffusing capacity adjusted for alveolar volume is 4.03, 91% predicted. Impression: There is a moderate obstructive abnormality with significant improvement after inhaling a single dose of albuterol. The increase in residual volume is consistent with air trapping from an obstructive abnormality. The diffusing capacity is normal. There are no prior studies for comparison
== END 2023-06-19 08:32 | disposition home or self-care (01) ==
LOC: ANHPFT 08:33
PROVIDERS: Visit Provider Internal Medicine Pulmonary Disease
DX: R06.00 Dyspnea, unspecified (principal); J40 Bronchitis, not specified as acute or chronic; Z72.0 Tobacco use; R94.2 Abnormal results of pulmonary function studies
CPT/HCPCS: 94060; 94618; 94726; 94729

== ENCOUNTER 2023-08-24 20:10 | Emergency (ER) | payer OTHER, SELFPAY ==
--- NOTE | ~2023-08-24 | XR_ITS ---
EXAMINATION: XR chest 2V DATE: 08/24/2023 20:24 INDICATION: Productive cough TECHNIQUE: PA and lateral views of the chest are obtained. COMPARISON: 11/12/2022 FINDINGS: The lungs are free of acute opacities. No pleural effusion or pneumothorax. The cardiomedia stinal silhouette is normal. There is mild thoracic spondylosis. Changes of bilateral mastectomy are noted. IMPRESSION: 1. No acute cardiopulmonary abnormality. Reviewed, dictated and finalized at location F. R [employer]
[2023-08-24 20:10] VITALS: BP 146/79; PULSE 95; RESP 20; TEMP 36.4; O2SAT 99
--- NOTE | 2023-08-24 20:13 | ED.SOB ---
HPI - SOB/Dyspnea General Chief Complaint: Shortness of Breath/Dyspnea Stated Complaint: pneumonia Time Seen by Provider: 08/24/23 20:10 Source: patient Mode of arrival: ambulatory Limitations: no limitations History of Present Illness HPI Narrative: Patient is a 47-year-old non compliant with medication patient and prior breast cancer with treatment here with shortness of breath and cough with congestion of the chest. She has been sick for the past week. MD elicited complaint: shortness of breath and cough Pertinent past history: other ( Prior smoker) Onset (ago): week(s) (1) Context: medication noncompliance Timing: constant Severity: moderate Exacerbating factors: nothing Relieving factors: nothing Associated symptoms: cough, wheezing and sputum production Treatment prior to arrival: none Related Data Home oxygen amount: none Allergies Allergy/AdvReac Type Severity Reaction Status Date / Time latex Allergy Intermediate Swelling Verified 05/22/23 13:37 lisinopril Allergy Intermediate Cough Verified 05/22/23 13:37 naproxen AdvReac Unknown Unknown Verified 05/22/23 13:37 Review of Systems Review of Systems: All systems reviewed & are unremarkable except as noted in HPI and below Constitutional: Constitutional: Reports no additional constitutional complaints Eyes: Eyes: Reports no additional eye complaints ENT: Reports system reviewed and no additional complaints, except as documented Cardiovascular: Cardiovascular: Reports no additional cardiovascular complaints Respiratory: Respiratory: Reports no additional respiratory complaints Gastrointestinal: Gastrointestinal: Reports no additional gastrointestinal complaints Genitourinary: Genitourinary: Reports no additional female genitourinary complaints Musculoskeletal: Musculoskeletal: Reports no additional musculoskeletal complaints Integumentary/Breasts: Skin/Breast: Reports system reviewed and no additional complaints, except as docu Neurologic: Reports system reviewed and no additional complaints, except as documented Psychiatric: Psychiatric: Reports no additional psychiatric complaints Endocrine: Endocrine: Reports no additional endocrine complaints Hematologic/Lymphatic: Hematologic/Lymphatic: Reports no additional hematologic/lymphatic complaints Allergic/Immunologic: Allergic/Immunologic: Reports no additional allergic/immunologic complaints [facility] Past Medical History Medical History Alcohol abuse, in remission Carpal tunnel syndrome on left Family history of colon cancer History of abnormal uterine bleeding History of breast cancer in adulthood History of broken leg History of femur fracture Hx of dysfunctional uterine bleeding Hyperglycemia Hypokalemia Leucocytosis MARIEL (obstructive sleep apnea) Sludge in gallbladder Surgical History Surgical History History of breast surgery History of endometrial ablation Hx of appendectomy Hx of bilateral mastectomy Hx of eye surgery Hx of foot surgery bilateral Family History Family History Father Hypertension Mother Asthma Family history of elevated blood lipids Sibling Family history of elevated blood lipids Carcinoma of colon Social History Social History Smoking packs per day: 1 Smoking cigarettes per day: 20.0 Years smoked: 36 Smoking pack-years: 36.00 Smoking status: Former smoker Tobacco type: cigarettes Second hand tobacco smoke exposure: Yes Alcohol intake: current Drinks per week: 14 Substance use: current Substance use type: marijuana Last use: 1 month ago Lack of Transportation: No Lack of Food: Never True Current Housing: I Do Not Have Housing Concerned About Future Housing: No Difficulty Paying Gas/Electric Bills: No Di
[2023-08-24 20:44] LABS: Basophils Absolute Auto 0.03 K/mm3 (0.00-0.10); Basophils Percent Auto 0.4 % (0.0-1.0); Eosinophils Percent Auto 1.3 % (1.0-6.0); Hematocrit 39.8 % (35.0-49.0); Immature Granulocyte Absolute 0.02 K/mm3 (0.00-0.00); Immature Granulocyte Percent A 0.3 % (0.0-0.0); Lymphocytes Absolute Auto 1.57 K/mm3 (1.10-4.50); Lymphocytes Percent Auto 20.3 % (18.0-42.0); Mean Corpuscular HGB Conc 32.7 g/dL (32.0-36.0); Mean Corpuscular Volume 91.7 fL (78.0-102.0); Mean Platelet Volume 9.8 fl (9.2-11.8); Monocytes Absolute Auto 0.63 K/mm3 (0.10-0.90); Monocytes Percent Auto 8.1 % (2.0-11.0); Neutrophils Absolute Auto 5.4 K/mm3 (1.7-7.2); Neutrophils Percent Auto 69.6 % (50.0-70.0); Platelet Count Result 279 K/mm3 (150-420); Red Blood Count 4.34 M/mm3 (4.20-5.40); Red Cell Distribution Width 13.9 % (11.6-14.4); White Blood Count 7.7 K/mm3 (4.8-10.8)
[2023-08-24 20:57] LABS: Alanine Aminotransferase 25 U/L (14-59); Albumin Level 2.9 g/dL (3.4-5.0); Alkaline Phosphatase 117 U/L (46-116); Anion Gap 11 mmol/L (8-16); Aspartate Amino Transferase 12 U/L (15-37); Bilirubin,Total 0.3 mg/dL (0.00-1.00); Blood Urea Nitrogen 8 mg/dL (7-18); Calcium 8.5 mg/dL (8.5-10.1); Carbon Dioxide 24 mmol/L (21-32); Chloride 104 mmol/L (98-108); D Dimer 0.46 mg/L (0.19-0.50); Estimated CRCL calculation 88 ml/min; Estimated Glomerular Filt Rate > 60; Glucose 137 mg/dL (70-99); Osmolality Calculated 288 mOsm/kg (285-295); Potassium 3.5 mmol/L (3.5-5.1); Sodium 139 mmol/L (136-145); Total Protein 6.4 g/dL (6.4-8.2)
[2023-08-24 21:06] LABS: Lactic Acid Reflex 1.6 mmol/L (0.4-2.0)
[2023-08-24 21:26] LABS: SARS-CoV-2 RNA PCR Negative (Negative)
[2023-08-24 21:27] LABS: Influenza A QL RT-PCR Negative (Negative); Influenza B QL RT-PCR Negative (Negative); RSV RNA, RT-PCR Negative (Negative)
[2023-08-24 21:29] VITALS: BP 141/82; PULSE 83; RESP 18; TEMP 36.6; O2SAT 98
[2023-08-24 21:46] VITALS: PULSE 77; RESP 20; O2SAT 99
[2023-08-24] MEDS: IPRATROPIUM 0.5 MG/ALBUTEROL SULFATE 2.5 MG AMPUL.NEB 3 ML INHALATION (21:55)
[2023-08-24 21:58] VITALS: PULSE 62; RESP 20; O2SAT 96
[2023-08-24] MEDS: AMOXICILLIN/CLAVULANATE K 875-125 MG TAB 1 TABLET PO (22:00)
[2023-08-24] MEDS: methylPREDNISolone SOD SUCC 125 MG VIAL IM (22:00)
[2023-08-24 22:02] VITALS: O2SAT 96
== END 2023-08-24 22:16 | disposition home or self-care (01) ==
PROVIDERS: Emergency Provider Emergency Medicine
DX: J40 Bronchitis, not specified as acute or chronic (principal); Z85.3 Personal history of malignant neoplasm of breast; Z87.891 Personal history of nicotine dependence; Z20.822 Contact with and (suspected) exposure to COVID-19
CPT/HCPCS: 36415; 71046; 80053; 83605; 85025; 85380; 87637; 94640; 96372; 99283; A9270; J2930

== ENCOUNTER 2024-07-10 20:15 | Observation (INO) | payer OTHER, SELFPAY ==
--- NOTE | ~2024-07-10 | XR_ITS ---
XR chest 1V portable DATE: 07/10/2024 20:59 INDICATION: Respiratory distress. Tracheostomy. TECHNIQUE: Portable AP chest on 07/10/2024 at 2058 hours COMPARISON: 08/24/2023 PA and lateral chest FINDINGS: Tracheostomy tube appears in satisfactory position. There is discoid atelectasis in the medial left lower lobe. There is atelectasis or infiltrate overly ing the right infrahilar region. The lungs otherwise appear essentially clear. No pleural effusion or pulmonary vascular congestion or pneumothorax. Normal heart size. IMPRESSION: Atelectasis or infiltrate in overlying the right infrahilar area and discoid atelectasis in the medial left lower lobe Tracheostomy tube appears in satisfactory position Reviewed, dictated and finalized at location A. CULTURE FARM MANAGER IMPRESSION: Atelectasis or infiltrate in overlying the right infrahilar area an d discoid atelectasis in the medial left lower lobe Tracheostomy tube appears in satisfactory position
[2024-07-10 20:17] VITALS: BP 126/85; PULSE 79; RESP 23; TEMP 36.7; O2SAT 100
[2024-07-10 20:29] VITALS: RESP 22; O2SAT 100
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
[2024-07-10 20:51] LABS: Basophils Percent Auto 0.4 % (0.2-1.2); Eosinophils Absolute Auto 0.2 K/mm3 (0-0.3); Eosinophils Percent Auto 1.8 % (0-4.4); Hematocrit 36.8 % (37.0-47.0); Immature Granulocyte Absolute 0.02 K/mm3 (0.00-0.031); Immature Granulocyte Percent A 0.2 % (0-0.5); Lymphocytes Absolute Auto 2.43 K/mm3 (0.9-3.2); Lymphocytes Percent Auto 26.6 % (18.3-44.2); Mean Corpuscular HGB Conc 29.9 g/dl (32-36); Mean Corpuscular Hemoglobin 25.5 pg (26-34); Mean Corpuscular Volume 85.2 fl (80-100); Monocytes Absolute Auto 0.8 K/mm3 (0.1-0.6); Monocytes Percent Auto 8.8 % (2.6-8.5); Neutrophils Absolute Auto 5.7 K/mm3 (1.3-6.7); Neutrophils Percent Auto 62.2 % (45.5-73.1); Platelet Count Result 358 k/mm3 (150-375); Red Blood Count 4.32 M/mm3 (4.2-5.4); Red Cell Distribution Width 16.4 % (11.5-14.5); White Blood Count 9.1 K/mm3 (4.5-10.0)
[2024-07-10 20:59] LABS: Anion Gap 9 mmol/L (4-12); Blood Urea Nitrogen 22 mg/dL (7-17); Calcium 9.6 mg/dL (8.4-10.2); Carbon Dioxide 28 mmol/L (22-30); Chloride 101 mmol/L (98-107); Estimated Glomerular Filt Rate > 60; Glucose 97 mg/dL (65-110); Magnesium 2.1 mg/dL (1.6-2.3); Sodium 138 mmol/L (137-145)
[2024-07-10 21:13] VITALS: BP 126/86; PULSE 76; RESP 22; TEMP 36.6; O2SAT 96
[2024-07-10 21:15] VITALS: RESP 24; O2SAT 98
--- NOTE | 2024-07-10 21:38 | PC.NURSE ---
Per Jeny at [facility] they will not have an aervo tonight and are unsure when the aervo will be operational.
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
[2024-07-10] MEDS: DOXYCYCLINE 100 MG/NS 100 ML 100 MG/100 ML BAG IVPB (22:33)
[2024-07-10] MEDS: CEFEPIME 2 GM/NS 50 ML 2 GM/50 ML BAG IVPB (22:41)
[2024-07-10] MEDS: VANCOMYCIN 2,000 MG/NS 500 ML 2,000 MG/500 ML BAG 250 MG IVPB (23:20)
[2024-07-10 23:27] VITALS: BP 109/87; PULSE 82; RESP 23; TEMP 36.7; O2SAT 94
[2024-07-10 23:41] VITALS: BMI 25.4
[2024-07-11] VITALS (20 sets, daily range): BP systolic 104–126; BP diastolic 55–86; PULSE 53–95; RESP 16–24; TEMP 36.7–37.9; O2SAT 93–98
[2024-07-11 00:15] LABS: MRSA (PCR) DETECTED (NOT DETECTE)
--- NOTE | 2024-07-11 00:50 | PC.NURSE ---
Called patient entry level marketing representative, sister Kristal Ching, to clarify code status. Patient is to be DNR and should have been listed as such in the Skilled Nursing. DNR status witnessed by Leti Cain RN.
--- NOTE | 2024-07-11 01:42 | ADMGEN ---
This patient, Gayathri Billingsley, was admitted to IMU Room 205-01 at 2342. Patient/family oriented to hospital policies and general routines including ID bracelet, bed and alarms, visiting hours, pain management, procedures, bathroom and other care routines, personal items, smoking policy, room service/diet, and visiting hours. Information on how to activate the Rapid Response Team has been discussed. Patient/Family are encouraged to report perceived risks to care and to ask questions if they do not understand what they are told or what they should do.
[2024-07-11 05:41] LABS: Glucose Point of Care 103 mg/dl (65-105)
[2024-07-11 05:48] LABS: Estimated CRCL calculation 119 ml/min; Estimated Glomerular Filt Rate > 60
[2024-07-11] MEDS: IPRATROPIUM 0.5 MG/ALBUTEROL SULFATE 2.5 MG AMPUL.NEB 3 ML INHALATION ×3 (07:54→21:33)
[2024-07-11 08:42] LABS: Basophils Percent Auto 0.4 % (0.2-1.2); Eosinophils Absolute Auto 0.2 K/mm3 (0-0.3); Hematocrit 33.6 % (37.0-47.0); Hemoglobin 10.2 g/dL (12.0-15.0); Immature Granulocyte Absolute 0.03 K/mm3 (0.00-0.031); Immature Granulocyte Percent A 0.4 % (0-0.5); Lymphocytes Absolute Auto 2.08 K/mm3 (0.9-3.2); Lymphocytes Percent Auto 24.8 % (18.3-44.2); Mean Corpuscular HGB Conc 30.4 g/dl (32-36); Mean Corpuscular Hemoglobin 25.8 pg (26-34); Mean Corpuscular Volume 84.8 fl (80-100); Mean Platelet Volume 10.8 fl (7.4-10.4); Monocytes Absolute Auto 0.8 K/mm3 (0.1-0.6); Monocytes Percent Auto 8.9 % (2.6-8.5); Neutrophils Absolute Auto 5.3 K/mm3 (1.3-6.7); Neutrophils Percent Auto 63.5 % (45.5-73.1); Platelet Count Result 373 k/mm3 (150-375); Red Blood Count 3.96 M/mm3 (4.2-5.4); Red Cell Distribution Width 16.4 % (11.5-14.5); White Blood Count 8.4 K/mm3 (4.5-10.0)
[2024-07-11 09:00] LABS: Alanine Aminotransferase 22 U/L (6-35); Albumin Level 3.7 g/dL (3.5-5.1); Alkaline Phosphatase 113 U/L (38-126); Anion Gap 11 mmol/L (4-12); Aspartate Amino Transferase 31 U/L (14-36); Bilirubin,Total 0.4 mg/dL (0.2-1.3); Blood Urea Nitrogen 20 mg/dL (7-17); CRP 2.5 mg/dL (<1.0); Calcium 9.7 mg/dL (8.4-10.2); Carbon Dioxide 26 mmol/L (22-30); Chloride 103 mmol/L (98-107); Estimated CRCL calculation 119 ml/min; Estimated Glomerular Filt Rate > 60; Glucose 101 mg/dL (65-110); Phosphorus 4.4 mg/dL (2.5-4.5); Sodium 140 mmol/L (137-145)
[2024-07-11] MEDS: CEFEPIME 2 GM/NS 50 ML 2 GM/50 ML BAG IVPB ×2 (10:57→17:44)
[2024-07-11] MEDS: GABAPENTIN 100 MG CAPSULE FEED TUBE ×2 (10:58→17:43)
[2024-07-11] MEDS: SCOPOLAMINE 1 MG PATCH 1 PATCH TRANSDERM (10:58)
[2024-07-11] MEDS: AMANTADINE HCL 100 MG CAPSULE 200 MG FEED TUBE ×2 (10:58→20:25)
[2024-07-11] MEDS: DOXYCYCLINE HYCLATE 100 MG TABLET FEED TUBE ×2 (10:59→20:25)
[2024-07-11] MEDS: amLODIPine BESYLATE 10 MG TABLET FEED TUBE (10:59)
[2024-07-11] MEDS: methylPHENIDATE HCL (*CRX) 5 MG TABLET FEED TUBE ×2 (10:59→17:43)
[2024-07-11 12:02] LABS: Glucose Point of Care 120 mg/dl (65-105)
[2024-07-11] MEDS: VANCOMYCIN 1,500 MG/NS 500 ML 1,500 MG/500 ML BAG 250 MG IVPB (12:02)
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
[2024-07-11] MEDS: SENNOSIDES 8.6 MG TABLET 17.2 MG FEED TUBE (17:43)
[2024-07-11] MEDS: ACETAMINOPHEN 325 MG TABLET 650 MG FEED TUBE (17:43)
[2024-07-11] MEDS: POTASSIUM/PHOSPHORUS/SODIUM 1.5 GM PACKET 1 PACKET FEED TUBE (17:43)
[2024-07-11] MEDS: ENOXAPARIN 30 MG/0.3 ML SYRINGE SUB-Q (17:43)
[2024-07-11] MEDS: guaiFENesin/DEXTROMETHORPHAN 10 ML UDC FEED TUBE (17:43)
[2024-07-11] MEDS: MELATONIN 3 MG TABLET FEED TUBE (20:25)
[2024-07-11] MEDS: ESCITALOPRAM OXALATE 10 MG TABLET FEED TUBE (20:25)
[2024-07-12] VITALS (19 sets, daily range): BP systolic 110–124; BP diastolic 71–94; PULSE 62–152; RESP 20–24; TEMP 36.7–37; O2SAT 93–100
[2024-07-12 00:03] LABS: Glucose Point of Care 122 mg/dl (65-105)
[2024-07-12] MEDS: VANCOMYCIN 1,500 MG/NS 500 ML 1,500 MG/500 ML BAG 250 MG IVPB (00:07)
[2024-07-12] MEDS: guaiFENesin/DEXTROMETHORPHAN 10 ML UDC FEED TUBE ×2 (01:15→05:31)
[2024-07-12] MEDS: CEFEPIME 2 GM/NS 50 ML 2 GM/50 ML BAG IVPB ×2 (01:20→09:11)
[2024-07-12] MEDS: IPRATROPIUM 0.5 MG/ALBUTEROL SULFATE 2.5 MG AMPUL.NEB 3 ML INHALATION ×3 (02:58→13:12)
[2024-07-12] MEDS: ENOXAPARIN 30 MG/0.3 ML SYRINGE SUB-Q (05:30)
[2024-07-12] MEDS: POTASSIUM/PHOSPHORUS/SODIUM 1.5 GM PACKET 1 PACKET FEED TUBE (05:31)
[2024-07-12 07:34] LABS: Basophils Percent Auto 0.3 % (0.2-1.2); Eosinophils Absolute Auto 0.2 K/mm3 (0-0.3); Eosinophils Percent Auto 2.3 % (0-4.4); Hematocrit 30.9 % (37.0-47.0); Hemoglobin 9.2 g/dL (12.0-15.0); Immature Granulocyte Absolute 0.02 K/mm3 (0.00-0.031); Immature Granulocyte Percent A 0.3 % (0-0.5); Lymphocytes Absolute Auto 1.75 K/mm3 (0.9-3.2); Mean Corpuscular HGB Conc 29.8 g/dl (32-36); Mean Corpuscular Hemoglobin 25.4 pg (26-34); Mean Corpuscular Volume 85.4 fl (80-100); Mean Platelet Volume 10.3 fl (7.4-10.4); Monocytes Absolute Auto 0.6 K/mm3 (0.1-0.6); Monocytes Percent Auto 6.9 % (2.6-8.5); Neutrophils Absolute Auto 5.4 K/mm3 (1.3-6.7); Neutrophils Percent Auto 68.2 % (45.5-73.1); Platelet Count Result 337 k/mm3 (150-375); Red Blood Count 3.62 M/mm3 (4.2-5.4); Red Cell Distribution Width 16.5 % (11.5-14.5); White Blood Count 7.9 K/mm3 (4.5-10.0)
[2024-07-12 07:52] LABS: Albumin Level 3.4 g/dL (3.5-5.1); Anion Gap 7 mmol/L (4-12); Blood Urea Nitrogen 17 mg/dL (7-17); CRP 1.8 mg/dL (<1.0); Calcium 8.9 mg/dL (8.4-10.2); Carbon Dioxide 27 mmol/L (22-30); Chloride 105 mmol/L (98-107); Estimated CRCL calculation 119 ml/min; Estimated Glomerular Filt Rate > 60; Glucose 125 mg/dL (65-110); Magnesium 1.9 mg/dL (1.6-2.3); Phosphorus 4.4 mg/dL (2.5-4.5); Potassium 3.9 mmol/L (3.4-5.0); Sodium 139 mmol/L (137-145)
[2024-07-12 08:29] LABS: Hypochromasia 1+; Ovalocytes 1+; Platelet Estimate Adequate (Adequate); Schistocytes None Seen
[2024-07-12] MEDS: AMANTADINE HCL 100 MG CAPSULE 200 MG FEED TUBE (09:11)
[2024-07-12] MEDS: SENNOSIDES 8.6 MG TABLET 17.2 MG FEED TUBE (09:11)
[2024-07-12] MEDS: DOXYCYCLINE HYCLATE 100 MG TABLET FEED TUBE (09:11)
[2024-07-12] MEDS: GABAPENTIN 100 MG CAPSULE FEED TUBE (09:12)
[2024-07-12] MEDS: methylPHENIDATE HCL (*CRX) 5 MG TABLET FEED TUBE (09:12)
[2024-07-12] MEDS: amLODIPine BESYLATE 10 MG TABLET FEED TUBE (09:12)
[2024-07-12 12:09] LABS: Glucose Point of Care 122 mg/dl (65-105)
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
--- NOTE | 2024-07-12 12:55 | PC.NURSE ---
Report called to Pamella nurse at [facility]. Discharge paperwork also faxed over to [facility] and this was discussed with the nurse as well. Denies questions at this time.
== END 2024-07-12 14:26 ==
LOC: ANHED 22:07 → ANHIMU 07-11 02:36
PROVIDERS: Admitting Provider Internal Medicine; Emergency Provider Student in an Organized Health Care Education/Training Program; Visit Provider Internal Medicine
DX: J18.9 Pneumonia, unspecified organism (principal); Z93.0 Tracheostomy status; Z99.81 Dependence on supplemental oxygen; J43.9 Emphysema, unspecified; G47.33 Obstructive sleep apnea (adult) (pediatric); G93.49 Other encephalopathy; Z87.820 Personal history of traumatic brain injury; Z93.1 Gastrostomy status; Z87.891 Personal history of nicotine dependence; Z85.3 Personal history of malignant neoplasm of breast; Z90.13 Acquired absence of bilateral breasts and nipples; Z79.51 Long term (current) use of inhaled steroids; Z79.899 Other long term (current) drug therapy
CPT/HCPCS: 36415; 71045; 80048; 80053; 80069; 82565; 82948; 83735; 84100; 85025; 86140; 87641; 94640; 96365; 96366; 96367; 96372; 96375; 99285; A9270; G0378; G0379; J0692; J0696; J1650; J3370

== ENCOUNTER 2024-07-26 23:46 | Observation (INO) | payer OTHER, SELFPAY ==
--- NOTE | ~2024-07-26 | CT_ITS ---
Clinical Indication: Febrile, transaminitis CT Scan of the Chest, Abdomen, and Pelvis with Contrast: Technique: Contiguous sections were acquired throughout the chest, abdomen, and pelvis after intraven ous administration of 100 cc of Omnipaque 350. Dose reduction technique was used on this scan by desmond colmenares automated exposure control and iterative reconstruction technique. The dose-length product (DL P) was 1292.51 mGy-cm. Comparison: 05/13/2023 Findings: There is no evidence of any significant mediastinal, hilar or axillary lymphadenopathy. The mediastin al soft tissues and vascular structures appear normal. Tracheostomy cannula in place. There is no evidence of pleural or pericardial effusion. There is right basilar consolidation, which could reflect atelectasis and/or pneumonia. There is mini mal left basilar atelectasis. The liver, spleen, pancreas, gallbladder, adrenals and kidneys are within normal limits. There are at herosclerotic calcifications of the aorta. No lymphadenopathy. No bowel obstruction or bowel wall thickening. There is no evidence to suggest acute appendicitis. Pe rcutaneous gastrostomy tube in place. Probable constipation. Urinary bladder is unremarkable. No pelvic mass seen. No ascites. Impression: Right basilar consolidation could reflect atelectasis versus pneumonia. Correlate clinically. Constipation. Reviewed, dictated and finalized at location . NDER TENDER Impression: Right basilar consolidation could reflect atelectasis versus pneumonia. Correla te clinically. Constipation.
--- NOTE | ~2024-07-26 | XR_ITS ---
Portable chest x-ray Comparison: 07/10/2024 Clinical History: Febrile Findings: Tracheostomy cannula place. Probable mild haziness right lung base. Left lung clear. Card iomediastinal silhouette is stable. Bones and soft tissues are unremarkable. Impression: Mild haziness right lung base, nonspecific. Tracheostomy cannula. Reviewed, dictated and finalized at location . TRICAL ASSEMBLER Impression: Mild haziness right lung base, nonspecific. Tracheostomy cannula.
[2024-07-27] VITALS (24 sets, daily range): BP systolic 102–147; BP diastolic 57–90; PULSE 69–108; RESP 17–33; TEMP 36.4–39.8; O2SAT 78–100; BMI 30.2
--- NOTE | 2024-07-27 00:23 | ED.FEVER ---
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 She has had fever since 8:00 p.m.. It was reported that her temperature at the facility was 105? F. She was given acetaminophen. She has also had thick trach secretions. Related Data Home Medications ?Medication ?Instructions ?Recorded ?Confirmed ?Last Taken ?Type acetaminophen 325 mg tablet 650 mg feeding tube Q4H PRN Pain 07/11/24 07/27/24 Unknown History (Scale Score 1-3) amantadine HCl 100 mg tablet 200 mg feeding tube Q12H 07/11/24 07/27/24 Unknown History amlodipine 10 mg tablet 10 mg feeding tube DAILY 07/11/24 07/27/24 Unknown History bisacodyl 10 mg rectal suppository 10 mg RECTAL DAILY PRN Constipation 07/11/24 07/27/24 Unknown History cholecalciferol (vitamin D3) 12.5 1,000 unit PO DAILY 07/11/24 07/27/24 Unknown History mcg/5 mL (500 unit/5 mL) oral liquid dextrose 40 % oral gel (Glucose 15 g PO Q15M PRN Hypoglycemia 07/11/24 07/27/24 Unknown History Gel) enoxaparin 30 mg/0.3 mL 30 mg subcut Q12H 07/11/24 07/27/24 Unknown History subcutaneous syringe (Lovenox) escitalopram oxalate 10 mg tablet 10 mg feeding tube HS 07/11/24 07/27/24 Unknown History gabapentin 100 mg capsule 100 mg feeding tube TID 07/11/24 07/27/24 Unknown History hydroxyzine HCl 50 mg tablet 50 mg feeding tube Q6H PRN Itching 07/11/24 07/27/24 Unknown History ipratropium 0.5 mg-albuterol 3 mg 3 ml inhalation Q6H 07/11/24 07/27/24 Unknown History (2.5 mg base)/3 mL nebulization soln magnesium hydroxide 400 mg/5 mL 400 mg PO DAILY PRN Constipation 07/11/24 07/27/24 Unknown History oral suspension (Milk of Magnesia) melatonin 3 mg tablet 3 mg feeding tube HS 07/11/24 07/27/24 Unknown History methylphenidate HCl 5 mg chewable 5 mg feeding tube BID 07/11/24 07/27/24 Unknown History tablet naloxone 4 mg/actuation nasal spray 4 mg intranasal Q2M PRN overdose 07/11/24 07/27/24 Unknown History potassium, sodium phosphates 280 1 packet feeding tube Q12H 07/11/24 07/27/24 Unknown History mg-160 mg-250 mg oral powder packet (Phosphorous Supplement) salt moisturizing solution no1 2 spray intranasal Q1H PRN 07/11/24 07/27/24 Unknown History Congestion scopolamine base 1 mg over 3 days 1.5 mg transdermal Q72H Nausea And 07/11/24 07/27/24 Unknown History transdermal patch Vomiting sennosides 8.6 mg tablet 17.2 mg PO BID 07/11/24 07/27/24 Unknown History sodium phosphates 19 gram-7 118 ml RECTAL DAILY PRN 07/11/24 07/27/24 Unknown History gram/118 mL enema (Enema Constipation Disposable) Allergies Allergy/AdvReac Type Severity Reaction Status Date / Time latex Allergy Intermediate Swelling Verified 05/22/23 13:37 lisinopril Allergy Intermediate Cough Verified 05/22/23 13:37 naproxen AdvReac Unknown Unknown Verified 05/22/23 13:37 [facility] Past Medical History Medical History Nonverbal Metabolic encephalopathy Traumatic hemorrhage of cerebrum, unspecified, without loss of consciousness, subsequent encounter Other fracture of shaft of right humerus, subsequent encounter for fracture with routine healing Unspecified fracture of left forearm, subsequent encounter for closed fracture with routine healing Fracture of nasal bones, subsequent encounter for fracture with routine healing Fracture of other specified skull and facial bones, left side, subsequent encounter for fracture with routine healing Traumatic subarachnoid hemorrhage without loss of consciousness, subsequent encounter Diffuse traumatic brain injury with loss of consciousness of unspecified duration, subsequent encounter Tracheostomy dependent Hypokalemia Leucocytosis History of femur fracture MARIEL (obstructive sleep apnea) Sludge in gallbladder Hyperglycemia History of breast cancer in adulthood Carpal tunnel syndrome on left Alcohol abuse, in remission Hx of dysfunctional uterine bleeding History of broken leg History of abnormal uterine bleeding Family history of colon cancer Surgical History Surgical History PEG (percutaneous endoscopic gastrostomy) status History of endometrial ablation History of breast surgery Hx of eye surgery Hx of appendectomy Hx of bilateral mastectomy Hx of foot surgery bilateral Family History Family History Father Hypertension Mother Asthma Family history of elevated blood lipids Sibling Family history of elevated blood lipids Carcinoma of colon Social History Social History Smoking packs per day: 1 Smoking cigarettes per day: 20.0 Years smoked: 36 Smoking pack-years: 36.00 Smoking status: Former smoker Second hand tobacco smoke exposure: Yes Alcohol intake: former Drinks per week: 14 Substance use: former Substance use type: marijuana Lack of Transportation: No Lack of Food: Never True Current Housing: I Do Not Have Housing Concerned About Future Housing: No Difficulty Paying Gas/Electric Bills: No Difficulty Paying for Meds: No Currently Unemployed: No Education: Trade/Vocational Certificate Difficulty w/ Childcare or Family Care: No Living arrangements: senior living Additional living arrangements comments: [facility] Occupation/Education: occupation 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 HEAD: Normocephalic, atraumatic. ENT: Nares clear, no rhinorrhea or epistaxis. Tongue is dry as are rest mucous membranes given patient keeps her mouth open NECK: Supple. Trach in place without surrounding erythema, induration, or purulent discharge CHEST: Tachypneic. Coarse bilateral breath sounds HEART: Tachycardic rate and rhythm. . ABDOMEN: Soft, nondistended. Nontender to palpation. No rigidty/guarding. G tube in place w/o surrounding erythema/induration/purulent discharge. EXTREMITIES: No lower extremity edema. SKIN: Warm, dry, no rash on extremities or abdomen. NEURO: Nonverbal. Minimally responsive (which is reported baseline) Course Vital Signs Vital signs: Vital Signs Pulse Oximetry 95 07/27/24 00:19 Oxygen Delivery High Flow Therapy with Tr 07/27/24 00:19 Oxygen Flow Rate 60 07/27/24 00:19 Fraction of Inspired Oxygen 53 07/27/24 00:19 Temperature 98.5 F 07/27/24 17:55 Pulse Rate 71 07/27/24 17:55 Respiratory Rate 17 07/27/24 17:55 Blood Pressure 102/58 L 07/27/24 17:55 Pulse Oximetry 99 07/27/24 17:55 Oxygen Delivery Room Air 07/27/24 17:55 Oxygen Flow Rate 60 07/27/24 15:10 Fraction of Inspired Oxygen 88 07/27/24 15:10 MDM - Fever MDM Narrative Medical decision making narrative: Patient presents from a nursing facility week she has receded due to her trach and PEG dependence after a traumatic brain injury. At baseline she is nonverbal. It is reported that she had a fever of 105? F for which she was given acetaminophen and she has been having thick trach secretions. In the emergency department she is borderline febrile, tachycardic, tachypneic, but with appropriate blood pressure. She is saturating appropriately on high flow with her trach. Will give IV fluids. Patient has a rectal temperature of 103.7?. It has been approximately 5 hours since reported dose of APAP given. Will given a rectal dose now given lists allergy to NSAID/naproxen. She has a profound leukocytosis. Given there is strong concern that she has bacterial tracheitis versus possible pneumonia and is septic as a result, will begin vancomycin and ceftriaxone and another 1.5 L of IV fluids (goal 30mg/kg would make approx 2550mL). Discussed with Dr Easton. Will broaden to Zosyn for pseudomonas coverage. IMU given will require frequent suctioning. Differential Diagnosis Differential diagnosis: Likely cellulitis, fever of unknown origin, gastroenteritis, community acquired pneumonia, pyelonephritis, viral infection, sepsis, influenza and other (Bacterial the tracheitis) Lab Data Attestation: I reviewed the patient's lab results. Lab results narrative: [place] 0.299 and lipase 34 (these result during EMR down time) 07/27/24 00:45 07/27/24 00:45 Labs: Lab Results 07/27/24 07/27/24 07/27/24 Range/Units 00:25 00:45 02:45 WBC 25.9 H (4.5-10.0) K/mm3 RBC 5.08 (4.2-5.4) M/mm3 Hgb 12.7 D (12.0-15.0) g/dL Hct 42.4 (37.0-47.0) % MCV 83.5 (80-100) fl MCH 25.0 L (26-34) pg MCHC 30.0 L (32-36) g/dl RDW 17.8 H (11.5-14.5) % Plt Count 461 H (150-375) k/mm3 MPV 10.4 (7.4-10.4) fl Immature Gran % (Auto) Not Reportable Neut % (Auto) Not Reportable Lymph % (Auto) Not Reportable [place]ardo % (Auto) Not Reportable Eos % (Auto) Not Reportable Baso % (Auto) Not Reportable Lymph # (Auto) Not Reportable [place]ardo # (Auto) Not Reportable Eos # (Auto) Not Reportable Baso # (Auto) Not Reportable Abs Immat Gran (auto) Not Reportable Absolute Neuts (auto) Not Reportable Absolute Nucleated RBC Not Reportable Total Counted 100 Neutrophils % (Manual) 73 (46-73) % Band Neutrophils % 5 (0-6) % Lymphocytes % (Manual) 16.0 L (18-44) % Monocytes % (Manual) 6 (3-9) % Nucleated RBC % Not Reportable Abs Neuts (Manual) 20.20 H (1.7-7.2) K/mm3 Abs Lymphs (Manual) 4.14 (1.1-4.5) K/mm3 Abs Monocytes (Manual) 1.55 H (0.1-0.90) K/mm3 Platelet Estimate Adequate (Adequate) Anisocytosis 1+ Schistocytes None seen Sodium 142 (137-145) mmol/L Potassium 3.8 (3.4-5.0) mmol/L Chloride 107 (98-107) mmol/L Carbon Dioxide 25 (22-30) mmol/L Anion Gap 10 (4-12) mmol/L BUN 25 H (7-17) mg/dL Creatinine 0.50 L (0.7-1.0) mg/dL Estim Creat Clear Calc 125 ml/min Estimated GFR > 60 (59 - ) Glucose 128 H (65-110) mg/dL Lactic Acid 1.1 (0.7-2.0) mmol/L Calcium 9.7 (8.4-10.2) mg/dL Total Bilirubin 0.6 (0.2-1.3) mg/dL AST 59 H (14-36) U/L ALT 72 H (6-35) U/L Alkaline Phosphatase 140 H (38-126) U/L Total Protein 8.0 (6.3-8.2) g/dL Albumin 4.4 (3.5-5.1) g/dL Lipase 34 (23-300) U/L Procalcitonin 0.3 ng/mL TSH 1.420 (0.465-4.680) uIU/mL Urine Color Yellow (Yellow) Urine Appearance Clear (Clear) Urine pH 5.0 (5.0-9.0) Ur Specific Foley 1.030 (1.001-1.035) Urine Protein Trace (Negative) mg/dL Urine Glucose (UA) Negative (Negative) mg/dL Urine Ketones Negative (Negative) mg/dL Ur Blood (Man) Negative (Negative) Urine Nitrate Negative (Negative) Urine Bilirubin Negative (Negative) Urine Urobilinogen 0.2 (<2.0) mg/dL Leukocyte Esterase Rfl 1+ H (Negative) RUCHI/UL Urine RBC 0-2 (0-2) /hpf Urine WBC 6-10 H (0-3) /hpf Ur Squamous Epith Cells None seen (Few) /hpf Urine Bacteria None seen /hpf Urine Casts 0-2 Nasal MRSA (PCR) (NOT DETECTE) Influenza A (RT-PCR) Negative (Negative) Influenza B (RT-PCR) Negative (Negative) RSV (RT-PCR) Negative (Negative) SARS-CoV-2 RNA (RT-PCR) Negative (Negative) 07/27/24 Range/Units 08:10 WBC (4.5-10.0) K/mm3 RBC (4.2-5.4) M/mm3 Hgb (12.0-15.0) g/dL Hct (37.0-47.0) % MCV (80-100) fl MCH (26-34) pg MCHC (32-36) g/dl RDW (11.5-14.5) % Plt Count (150-375) k/mm3 MPV (7.4-10.4) fl Immature Gran % (Auto) Neut % (Auto) Lymph % (Auto) [place]ardo % (Auto) Eos % (Auto) Baso % (Auto) Lymph # (Auto) [place]ardo # (Auto) Eos # (Auto) Baso # (Auto) Abs Immat Gran (auto) Absolute Neuts (auto) Absolute Nucleated RBC Total Counted Neutrophils % (Manual) (46-73) % Band Neutrophils % (0-6) % Lymphocytes % (Manual) (18-44) % Monocytes % (Manual) (3-9) % Nucleated RBC % Abs Neuts (Manual) (1.7-7.2) K/mm3 Abs Lymphs (Manual) (1.1-4.5) K/mm3 Abs Monocytes (Manual) (0.1-0.90) K/mm3 Platelet Estimate (Adequate) Anisocytosis Schistocytes Sodium (137-145) mmol/L Potassium (3.4-5.0) mmol/L Chloride (98-107) mmol/L Carbon Dioxide (22-30) mmol/L Anion Gap (4-12) mmol/L BUN (7-17) mg/dL Creatinine (0.7-1.0) mg/dL Estim Creat Clear Calc ml/min Estimated GFR (59 - ) Glucose (65-110) mg/dL Lactic Acid (0.7-2.0) mmol/L Calcium (8.4-10.2) mg/dL Total Bilirubin (0.2-1.3) mg/dL AST (14-36) U/L ALT (6-35) U/L Alkaline Phosphatase (38-126) U/L Total Protein (6.3-8.2) g/dL Albumin (3.5-5.1) g/dL Lipase (23-300) U/L Procalcitonin ng/mL TSH (0.465-4.680) uIU/mL Urine Color (Yellow) Urine Appearance (Clear) Urine pH (5.0-9.0) Ur Specific Foley (1.001-1.035) Urine Protein (Negative) mg/dL Urine Glucose (UA) (Negative) mg/dL Urine Ketones (Negative) mg/dL Ur Blood (Man) (Negative) Urine Nitrate (Negative) Urine Bilirubin (Negative) Urine Urobilinogen (<2.0) mg/dL Leukocyte Esterase Rfl (Negative) RUCHI/UL Urine RBC (0-2) /hpf Urine WBC (0-3) /hpf Ur Squamous Epith Cells (Few) /hpf Urine Bacteria /hpf Urine Casts Nasal MRSA (PCR) Detected A* (NOT DETECTE) Influenza A (RT-PCR) (Negative) Influenza B (RT-PCR) (Negative) RSV (RT-PCR) (Negative) SARS-CoV-2 RNA (RT-PCR) (Negative) ABG Data ABG results: pH 7.374, pCO2 43.8, pO2 60.6, HCO3 25.0 Attestation: I personally reviewed and interpreted this ABG as follows: Interpretation: No anion gap. Primary respiratory acidosis with secondary metabolic acidosis Imaging Data Attestation: I personally reviewed and interpreted this imaging study as follows: My impression: Possibly concerning findings in right chest however patient slightly rotated thus suspect this is contributing to appearance on my indepdenent interpretation Radiologist's impression: XRAY Chest STAT RAD: Infiltration or atelectasis in the mid and lower right chest. Left lung clear. No pleural fluid or pneumothorax. Tracheostomy tube is stable. CT [facility] Chest: Consolidation in the right lower lobe. Much of this represents atelectasis however and there may also be infiltration. More mild infiltration or subsegmental atelectasis is seen in posterior aspect of the right upper lobe. No pleural effusion or pneumothorax. Tracheostomy tube is seen in place CT Abd pelvis STAT RAD: generalized increase in stool within which the colon the rectum. no evidence of bowel obstruction. Gastrostomy tube in the stomach. No abnormal fluid or regional inflammatory reaction. No abnormalities noted in the liver gallbladder. No bile duct dilatation. Impressions Chest/Abdomen/Pelvis CT 07/27/24 05:50 Impression: Right basilar consolidation could reflect atelectasis versus pneumonia. Correlate clinically. Constipation. Chest X-Ray 07/27/24 05:53 Impression: Mild haziness right lung base, nonspecific. Tracheostomy cannula. Discharge Plan Discharge Clinical Impression: Febrile, Transaminitis, Increased tracheal secretions Patient Disposition: Still a Patient Condition: Serious
[2024-07-27] MEDS: SODIUM CHLORIDE 0.9% IV 1,000 ML 999 ML IV CONT ×2 (01:13→02:48)
[2024-07-27 01:20] LABS: Add Urine Microscopic? YES; Appearance Urine Clear (Clear); Bacteria Urine None Seen /hpf; Bilirubin Urine Negative (Negative); Blood Urine Negative (Negative); Color Urine Yellow (Yellow); Glucose Urine UA Negative (Negative); Hematocrit 42.4 % (37.0-47.0); Hemoglobin 12.7 g/dL (12.0-15.0); Ketones Urine Negative (Negative); Leukocyte Esterase Ur 1+ LEU/UL (Negative); Mean Corpuscular Volume 83.5 fl (80-100); Mean Platelet Volume 10.4 fl (7.4-10.4); Nitrate Urine Negative (Negative); Non Pathogenic Casts 0-2; Platelet Count Result 461 k/mm3 (150-375); Protein Urine Trace mg/dL (Negative); RBC Urine 0-2 /hpf (0-2); Red Blood Count 5.08 M/mm3 (4.2-5.4); Red Cell Distribution Width 17.8 % (11.5-14.5); Squamous Epithelial Cell Urine None Seen /hpf (Few); Urobilinogen Urine 0.2 mg/dL (<2.0); White Blood Count 25.9 K/mm3 (4.5-10.0)
[2024-07-27 01:28] LABS: Lactic Acid Reflex 1.1 mmol/L (0.7-2.0)
[2024-07-27 01:29] LABS: Alanine Aminotransferase 72 U/L (6-35); Albumin Level 4.4 g/dL (3.5-5.1); Alkaline Phosphatase 140 U/L (38-126); Anion Gap 10 mmol/L (4-12); Aspartate Amino Transferase 59 U/L (14-36); Bilirubin,Total 0.6 mg/dL (0.2-1.3); Blood Urea Nitrogen 25 mg/dL (7-17); Calcium 9.7 mg/dL (8.4-10.2); Carbon Dioxide 25 mmol/L (22-30); Chloride 107 mmol/L (98-107); Estimated CRCL calculation 125 ml/min; Estimated Glomerular Filt Rate > 60; Glucose 128 mg/dL (65-110); Potassium 3.8 mmol/L (3.4-5.0); Sodium 142 mmol/L (137-145)
[2024-07-27 01:43] LABS: Band Neutrophils Percent 5 % (0-6); Lymphocytes Absolute Manual 4.14 K/mm3 (1.1-4.5); Monocytes Absolute Manual 1.55 K/mm3 (0.1-0.90); Monocytes Percent Manual 6 % (3-9); Neutrophils Percent Manual 73 % (46-73); Platelet Estimate Adequate (Adequate); Schistocytes None Seen; Total Cells Counted 100
[2024-07-27 01:44] LABS: Anisocytosis 1+
[2024-07-27 01:58] LABS: Influenza A QL RT-PCR Negative (Negative); Influenza B QL RT-PCR Negative (Negative); RSV RNA, RT-PCR Negative (Negative); SARS-CoV-2 RNA PCR Negative (Negative)
[2024-07-27] MEDS: ACETAMINOPHEN 650 MG SUPPOSITORY RECTAL (02:44)
[2024-07-27 02:48] LABS: Lipase 34 U/L (23-300)
[2024-07-27] MEDS: SODIUM CHLORIDE 0.9% IV 500 ML 999 ML IV CONT (02:48)
[2024-07-27] MEDS: VANCOMYCIN 1,000 MG/NS 250 ML 1,000 MG/250 ML BAG 250 MG IVPB (05:20)
[2024-07-27] MEDS: VANCOMYCIN 1,250 MG/NS 250 ML 1,250 MG/250 ML BAG 166.67 MG IVPB (05:20)
--- NOTE | 2024-07-27 07:59 | PC.NURSE ---
pt received 4.5g of Piperacillin IV at 0600 today.
[2024-07-27 09:46] LABS: Procalcitonin 0.3 ng/mL
[2024-07-27 10:59] LABS: MRSA (PCR) DETECTED (NOT DETECTE)
--- NOTE | 2024-07-27 11:48 | PC.NURSE ---
Patient's family at bedside requesting a wound consult and a care coordination consult. Both called and will consult with patient.
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
--- NOTE | 2024-07-27 13:48 | PCCCNOTE ---
Called to the ED to speak with the family regarding different SNF placement. Stated the pt was at [facility] and upset the wound dressing was soiled. Stated after the ED nurse removed the top dressing they saw the old bandages had been used to secure the new clean sterile dressing and were not quite as upset. The brother Christophe states he wanted the pt to have a CT to see how much brain activity is going on but regardless would like to have the pt place on Hospice services for when the pt returns to facility. Dr. Frankel agreeable to a Hospice consult. Callled Gwen with [facility] and faxed the referral successfully. Christophe is aware he will be receiving a call from the agency moving forward.-jam.
[2024-07-27] MEDS: IPRATROPIUM 0.5 MG/ALBUTEROL SULFATE 2.5 MG AMPUL.NEB 3 ML INHALATION ×2 (14:16→19:59)
[2024-07-27] MEDS: MEROPENEM 1 GM/NS 100 ML 1 GM/100 ML BAG IVPB ×2 (14:18→22:27)
--- NOTE | 2024-07-27 14:34 | PCCCNOTE ---
1434-Gwen from [facility] called stating they will be here in house at 830 to see the pt/family on 07/28/24.
[2024-07-27] MEDS: EUCERIN CREAM 120 GM JAR 1 APPLIC TOPICAL (15:18)
[2024-07-27] MEDS: VANCOMYCIN 1,500 MG/NS 500 ML 1,500 MG/500 ML BAG 250 MG IVPB (16:31)
[2024-07-27] MEDS: ENOXAPARIN 30 MG/0.3 ML SYRINGE SUB-Q (21:04)
[2024-07-28] VITALS (15 sets, daily range): BP systolic 110–136; BP diastolic 63–99; PULSE 62–95; RESP 16–24; TEMP 36.6–37.3; O2SAT 93–100
[2024-07-28] MEDS: IPRATROPIUM 0.5 MG/ALBUTEROL SULFATE 2.5 MG AMPUL.NEB 3 ML INHALATION ×3 (02:15→13:37)
--- NOTE | 2024-07-28 03:09 | ADMGEN ---
This patient, Gayathri Billingsley, was admitted to 2 Medical Room 244-. Patient/family oriented to hospital policies and general routines including ID bracelet, bed and alarms, visiting hours, pain management, procedures, bathroom and other care routines, personal items, smoking policy, room service/diet, and visiting hours. Information on how to activate the Rapid Response Team has been discussed. Patient/Family are encouraged to report perceived risks to care and to ask questions if they do not understand what they are told or what they should do.
[2024-07-28] MEDS: VANCOMYCIN 1,500 MG/NS 500 ML 1,500 MG/500 ML BAG 200 MG IVPB (04:32)
[2024-07-28 05:54] LABS: Basophils Percent Auto 0.2 % (0.2-1.2); Eosinophils Absolute Auto 0.1 K/mm3 (0-0.3); Eosinophils Percent Auto 0.8 % (0-4.4); Hematocrit 31.8 % (37.0-47.0); Hemoglobin 9.4 g/dL (12.0-15.0); Immature Granulocyte Absolute 0.09 K/mm3 (0.00-0.031); Immature Granulocyte Percent A 0.6 % (0-0.5); Lymphocytes Absolute Auto 2.27 K/mm3 (0.9-3.2); Lymphocytes Percent Auto 14.1 % (18.3-44.2); Mean Corpuscular HGB Conc 29.6 g/dl (32-36); Mean Corpuscular Hemoglobin 25.2 pg (26-34); Mean Corpuscular Volume 85.3 fl (80-100); Mean Platelet Volume 10.6 fl (7.4-10.4); Monocytes Absolute Auto 0.9 K/mm3 (0.1-0.6); Monocytes Percent Auto 5.3 % (2.6-8.5); Neutrophils Absolute Auto 12.7 K/mm3 (1.3-6.7); Platelet Count Result 315 k/mm3 (150-375); Red Blood Count 3.73 M/mm3 (4.2-5.4); Red Cell Distribution Width 17.2 % (11.5-14.5); White Blood Count 16.1 K/mm3 (4.5-10.0)
[2024-07-28 06:04] LABS: Albumin Level 3.1 g/dL (3.5-5.1); Anion Gap 5 mmol/L (4-12); Blood Urea Nitrogen 14 mg/dL (7-17); Calcium 9.1 mg/dL (8.4-10.2); Carbon Dioxide 24 mmol/L (22-30); Chloride 114 mmol/L (98-107); Estimated CRCL calculation 146 ml/min; Estimated Glomerular Filt Rate > 60; Glucose 87 mg/dL (65-110); Magnesium 2.1 mg/dL (1.6-2.3); Phosphorus 3.3 mg/dL (2.5-4.5); Potassium 3.2 mmol/L (3.4-5.0); Sodium 143 mmol/L (137-145)
[2024-07-28 06:37] LABS: Anisocytosis 1+; Platelet Estimate Adequate (Adequate); Schistocytes None Seen
[2024-07-28] MEDS: MEROPENEM 1 GM/NS 100 ML 1 GM/100 ML BAG IVPB ×2 (06:54→13:07)
[2024-07-28] MEDS: ENOXAPARIN 30 MG/0.3 ML SYRINGE SUB-Q (08:15)
[2024-07-28] MEDS: EUCERIN CREAM 120 GM JAR 1 APPLIC TOPICAL (08:16)
[2024-07-28] MEDS: SILVER SULFADIAZINE 1% CR 50 GM JAR (*BKC) 1 APPLIC TOPICAL (08:16)
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
[2024-07-28 14:15] LABS: Alveolar/Arterial O2 Gradient 210.4 mmHg; Base Excess ABG -0.4 mEq/l (+/-2.0); Oxygen Content ABG 14.3 %vol (16.0-22.0); Oxygen Saturation ABG 90.6 % (95.0-100.0); Oxyhemoglobin 88.1 % THb (90.0-100.0); PCO2 ABG 43.8 mmHg (35.0-45.0); PO2 ABG 60.6 mmHg (80.0-100.0); Total Hemoglobin 11.5 g/dL (12.0-18.0); pH ABG 7.374 (7.350-7.450)
[2024-07-28 14:16] LABS: Carboxyhemoglobin 1.1 % THb (0-2.0); Fractional Inspired Oxygen 45 %; Methemoglobin ABG 0.2 %THb (0-1.5); PO2 FiO2 Ratio Arterial Blood 1.35 %; Reduced Hemoglobin 10.6 %THb (0-5.0)
[2024-07-28 14:17] LABS: Device HIGH FLOW THERAPY
== END 2024-07-28 15:20 | disposition hospice, home (50) ==
LOC: ANHED 07-27 01:54 → ANHIMU 07-27 18:35 → ANH2MED 07-27 23:57
PROVIDERS: Internal Medicine; Admitting Provider Internal Medicine; Emergency Provider Student in an Organized Health Care Education/Training Program; PCP Family Medicine; Visit Provider Internal Medicine
DX: A41.9 Sepsis, unspecified organism (principal); J44.0 Chronic obstructive pulmonary disease with (acute) lower respiratory infection; J18.9 Pneumonia, unspecified organism; R74.01 Elevation of levels of liver transaminase levels; G93.40 Encephalopathy, unspecified; Z87.820 Personal history of traumatic brain injury; Z66 Do not resuscitate; Z87.891 Personal history of nicotine dependence; Z20.822 Contact with and (suspected) exposure to COVID-19; Z93.0 Tracheostomy status; Z93.1 Gastrostomy status; Z79.899 Other long term (current) drug therapy
CPT/HCPCS: 36415; 36600; 71045; 71260; 74177; 80053; 80069; 81001; 82375; 82805; 83050; 83605; 83690; 83735; 84145; 84443; 85018; 85025; 87040; 87070; 87086; 87181; 87186; 87205; 87637; 87641; 94640; 96361; 96365; 96366; 96367; 96368; 96372; 96375; 99285; A4629; A9270; G0378; J0696; J1650; J2185; J3370; J7030; J7040; Q9967